=== PATIENT | male | born 1965 | race African-American/Black ===

== ENCOUNTER 2017-12-02 10:20 | Inpatient (IN) | payer OTHER ==
[2017-12-02 11:18] VITALS: BMI 27.4
--- NOTE | 2017-12-02 14:19 | HP ---
COWS - Scale Resting Pulse: 0= [place] 80 or Below Sweatin=Flushed/Facial Moisture Restless Observation: 3= Extraneous Movement Pupil Size: 2= Moderately Dilated Bone or Joint Aches: 2= Severe Diffuse Aches Runny Nose/ Eye Tearin= Runny Nose/Eyes GI Upset > 30mins: 3= Vomiting/Diarrhea Tremor Observation: 2= Slight Tremor Visible Yawning Observation: 1= 1-2x During Session Anxiety or Irritability: 2=Irritable/Anxious Goose Flesh Skin: 0=Smooth Skin COWS Score: 19 Admission ROS BHS - HPI Chief Complaint: i need help to stop using heroin and oxycodone Allergies/Adverse Reactions: Allergies Allergy/AdvReac Type Severity Reaction Status Date / Time Fish Containing Products Allergy Severe Swelling Verified 12/02/17 12:17 mayonnaise Allergy Severe Verified 12/02/17 12:17 Penicillins Allergy Severe Swelling Verified 12/02/17 12:17 History of Present Illness: this 52 years old male with heroin and oxycodone dependence,seeking detox, withdrawal symptom,last detox 03/13/10 to 03/20/10 [facility] on medication bph nicotine dependence weight loss low back pain post injury at work had surgery in 2014 Exam Limitations: No Limitations - Ebola screening Have you traveled outside of the country in the last 21 days: No Have you had contact with anyone from an Ebola affected area: No Have you been sick,other than usual withdrawal symptoms: No Do you have a fever: No - Review of Systems Constitutional: Chills, Loss of Appetite, Malaise, Night Sweats, Changes in sleep, Weakness, Unintentional Wgt. Loss EENT: reports: Tearing, Nose Congestion Respiratory: reports: No Symptoms reported Cardiac: reports: No Symptoms Reported GI: reports: Diarrhea, Nausea, Vomiting, Abdominal cramping : reports: No Symptoms Reported Musculoskeletal: reports: Back Pain, Joint Pain, Muscle Pain, Joint Stiffness Integumentary: reports: Dryness Neuro: reports: Headache, Tremors Endocrine: reports: No Symptoms Reported Hematology: reports: No Symptoms Reported Psychiatric: reports: No Sypmtoms Reported, Judgement Intact, Mood/Affect Appropiate, Agitated, Anxious Patient History - Patient Medical History Hx Anemia: No Hx Asthma: No Hx Chronic Obstructive Pulmonary Disease (COPD): No Hx Cancer: No Hx Cardiac Disorders: No Hx Congestive Heart Failure: No Hx Hypertension: Yes (on medication) Hx Hypercholesterolemia: No Hx Pacemaker: No HX Cerebrovascular Accident: No Hx Seizures: No Hx Diabetes: No Hx Gastrointestinal Disorders: Yes (Hx of acid reflux.) Hx Liver Disease: No Hx Genitourinary Disorders: No Hx Sexually Transmitted Disorders: No Hx Renal Disease (ESRD): No Hx Thyroid Disease: No Hx Human Immunodeficiency Virus (HIV): No (last 07/20 negative) Hx Hepatitis C: No Hx Depression: No Hx Suicide Attempt: No Hx Bipolar Disorder: No Hx Schizophrenia: No Other Medical History: insomnia,no suicidal,no homicidal - Patient Surgical History Past Surgical History: Yes Hx Neurologic Surgery: No Other Surgical History: Pt had sx lower back herniated disc in 2016 - PPD History Previous Implant?: Yes Documented Results: Negative w/o proof Implanted On Prior [facility] Admission?: No PPD to be Administered?: Yes - Smoking Cessation Smoking history: Current every day smoker Have you smoked in the past 12 months: Yes Aproximately how many cigarettes per day: 6 Hx Chewing Tobacco Use: No Initiated information on smoking cessation: Yes 'Breaking Loose' booklet given: 12/02/17 - Substance & Tx. History Hx Alcohol Use: No Hx Substance Use: Yes Substance Use Type: Heroin Hx Substance Use Treatment: Yes ([facility] 03/13/10 to 03/20/10) - Substances Abused Heroin Route: Inhalation Frequency: Daily Amount used: 8-9 bags Age of first use: 43 Date of Last Use: 12/01/17 oxycodone Route: Oral Frequency: Daily Amount used: 90mg Age of first use: 42 Date of Last Use: 12/01/17 Family Disease History - Family Disease History Family History: Denies Admission Physical Exam [facility] - Vital Signs Vital Signs: Vital Signs - 24 hr 12/02/17 11:16 Temperature 97.3 F L Pulse Rate 68 Respiratory 18 Rate Blood Pressure 142/99 - Physical General Appearance: Yes: Moderate Distress, Irritable, Sweating, Anxious HEENTM: Yes: Normal ENT Inspection, NKECHI, Pharynx Normal Respiratory: Yes: Lungs Clear, Normal Breath Sounds, No Respiratory Distress Neck: Yes: Within Normal Limits, Supple, Trachea in good position Breast: Yes: Within Normal Limits Cardiology: Yes: Within Normal Limits, Regular Rhythm, Regular Rate, S1, S2 Abdominal: Yes: Within Normal Limits, Non Tender, Soft Genitourinary: Yes: Within Normal Limits Back: Yes: Muscle Spasm Musculoskeletal: Yes: Back pain, Muscle Pain Extremities: Yes: Tremors 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 NML intact, Alert, Motor Strength 5/5 Integumentary: Yes: Dry Lymphatic: Yes: Within Normal Limits - Diagnostic (1) Opioid dependence with withdrawal Current Visit: Yes Status: Acute (2) Weight loss Current Visit: Yes Status: Acute (3) Low back pain Current Visit: Yes Status: Acute (4) History of back surgery Current Visit: Yes Status: Acute (5) Essential hypertension Current Visit: Yes Status: Acute (6) Insomnia Current Visit: Yes Status: Acute (7) GERD (gastroesophageal reflux disease) Current Visit: Yes Status: Acute Cleared for Admission [facility] - Detox or Rehab [facility] Level of Care: Medically Managed Detox Regimen/Protocol: Methadone [facility] Breath Alcohol Content Breath Alcohol Content: 0 Urine Drug Screen - Results Drug Screen Negative: No Urine Drug Screen Results: OPI-Opiates, BAR-Barbiturates, BZO-Benzodiazepines, MTD-Methadone, OXY-Oxycodone
[2017-12-02] MEDS ORDERED: MAG HYDROX/AL HYDROX/SIMETH 30 ML UNIT-DOSE CUP PO PRN (14:42)
[2017-12-02] MEDS ORDERED: MAGNESIUM HYDROX 2400MG/30ML ORAL SUSPENSION 30 ML CUP PO PRN (14:42)
[2017-12-02] MEDS ORDERED: LOPERAMIDE HCL 2 MG CAPSULE PO PRN (14:42)
[2017-12-02] MEDS ORDERED: NICOTINE POLACRILEX 2 MG GUM BUC PRN (14:42)
[2017-12-02] MEDS ORDERED: MAGNESIUM CITRATE 300 ML BOTTLE PO PRN (14:42)
[2017-12-02] MEDS ORDERED: P-EPHED 60MG/TRIPROLIDI 2.5MG TABLET PO PRN (14:42)
[2017-12-02] MEDS ORDERED: hydrOXYzine PAMOATE 25 MG CAPSULE (FP) PO PRN (14:42)
[2017-12-02] MEDS ORDERED: MENTHOL/PHENOL 1 EACH UD MM PRN (14:42)
[2017-12-02] MEDS ORDERED: guaiFENesin/D-METHORPHAN HB 10 ML UNIT-DOSE CUPS PO PRN (14:42)
[2017-12-02] MEDS ORDERED: CYCLOBENZAPRINE HCL 10 MG TABLET (FP) PO PRN (14:45)
[2017-12-02] MEDS ORDERED: METHADONE HCL 10 MG TABLET (FOR DETOX USE ONLY) PO ONE ×2 (15:45→23:00)
[2017-12-02] MEDS: diazePAM 5 MG TABLET PO PRN ×2 (15:58→22:52)
[2017-12-02] MEDS: PANTOPRAZOLE 40 MG TABLET (FP) PO SCH (16:01)
[2017-12-02] MEDS: NICOTINE 21 MG/24 HOURS TOPICAL PATCH TD SCH (16:03)
[2017-12-02] MEDS: LIDOCAINE 5% TOPICAL PATCH TP SCH (16:03)
[2017-12-02 17:12] LABS: URINE APPEARANCE CLEAR; URINE BILIRUBIN NEGATIVE (<2.0 mg/dL); URINE COLOR YELLOW; URINE GLUCOSE (UA) NEGATIVE (NEGATIVE); URINE KETONE NEGATIVE (NEGATIVE); URINE LEUK ESTERASE NEGATIVE (NEGATIVE); URINE NITRITE NEGATIVE (NEGATIVE); URINE PROTEIN NEGATIVE (NEGATIVE); URINE UROBILINOGEN NEGATIVE mg/dL (0.2-1.0)
[2017-12-02] MEDS: cloNIDine HCL 0.1 MG TABLET PO SCH (22:52)
[2017-12-02] MEDS: THIAMINE HCL 100 MG TABLET (FP) PO SCH (22:52)
[2017-12-02] MEDS: LIDOCAINE PATCH REMOVAL MC SCH (23:01)
[2017-12-03] MEDS: TAMSULOSIN HCL 0.4 MG CAP.ER.24H (FP) PO SCH (08:45)
[2017-12-03] MEDS: ACETAMINOPHEN 325 MG TABLET (FP) PO PRN (08:45)
[2017-12-03] MEDS ORDERED: METHADONE HCL 10 MG TABLET (FOR DETOX USE ONLY) PO ONE (10:00)
[2017-12-03 10:14] LABS: CHLORIDE 108 mmol/L (98-107); POTASSIUM 4.6 mmol/L (3.5-5.1); SODIUM 143 mmol/L (136-145)
[2017-12-03 10:15] LABS: HEMATOCRIT 35.6 % (35.4-49); MCH 31.2 pg (25.7-33.7); MCHC 33.6 g/dl (32.0-35.9); MEAN CELL VOLUME 93.1 fl (80-96); MEAN PLT VOLUME 8.7 fl (7.5-11.1); PLATELET COUNT 258 K/MM3 (134-434); RBC 3.83 M/mm3 (4.00-5.60); RDW 14.9 % (11.9-15.9); WHITE BLOOD COUNT 4.6 K/mm3 (4.0-10.0)
--- NOTE | 2017-12-03 10:46 | EKG ---
Test Reason : Blood Pressure : / mmHG Vent. Rate : 066 BPM Atrial Rate : 066 BPM P-R Int : 140 ms QRS Dur : 094 ms QT Int : 394 ms P-R-T Axes : 048 043 041 degrees QTc Int : 413 ms NORMAL SINUS RHYTHM NORMAL ECG NO PREVIOUS ECGS AVAILABLE Confirmed by NISHA SOLORIO, ANDERS ([id number]) on 12/03/2017 10:46:27 AM Referred By: Confirmed By:ANDERS CAMERON MD
[2017-12-03 10:55] LABS: ALBUMIN 3.6 g/dl (3.4-5.0); ALK PHOS 80 U/L (45-117); ANION GAP 8 (8-16); BILIRUBIN,TOTAL 0.3 mg/dL (0.2-1.0); BLOOD UREA NITROGEN 22 mg/dL (7-18); CALCIUM 9.1 mg/dL (8.5-10.1); CO2 27 mmol/L (21-32); GLUCOSE,RANDOM 71 mg/dL (74-106); SGOT/AST 18 U/L (15-37); SGPT/ALT 34 U/L (12-78); TOT PROT 7.4 g/dl (6.4-8.2)
[2017-12-03] MEDS: ASPIRIN 81 MG CHEWABLE TABLETS PO SCH (11:10)
[2017-12-03] MEDS: cloNIDine HCL 0.1 MG TABLET PO SCH ×2 (11:10→22:16)
[2017-12-03] MEDS: PRENATAL VITAMINS W/ FOLIC ACID TABLET (FP) PO SCH (11:10)
[2017-12-03] MEDS: PANTOPRAZOLE 40 MG TABLET (FP) PO SCH (11:10)
[2017-12-03] MEDS: HYDROCHLOROTHIAZIDE 25 MG TABLET (FP) PO SCH (11:11)
[2017-12-03] MEDS: NICOTINE 21 MG/24 HOURS TOPICAL PATCH TD SCH (11:12)
[2017-12-03] MEDS: LIDOCAINE 5% TOPICAL PATCH TP SCH (11:12)
--- NOTE | 2017-12-03 12:52 | PN ---
BHS COWS - Scale Resting Pulse: 0= [place] 80 or Below Sweatin= Chills/Flushing Restless Observation: 3= Extraneous Movement Pupil Size: 1= Pupils >than Normal Bone or Joint Aches: 2= Severe Diffuse Aches Runny Nose/ Eye Tearin= Runny Nose/Eyes GI Upset > 30mins: 2= Nausea/Diarrhea Tremor Observation of Outstretched Hands: 2= Slight Tremor Visible Yawning Observation: 1= 1-2x During Session Anxiety or Irritability: 2=Irritable/Anxious Goose Flesh Skin: 0=Smooth Skin COWS Score: 16 S Progress Note (SOAP) Subjective: alert,irritable,anxious,interrupted sleep,tremor,pain in the body and back Objective: 12/03/17 12:48 Vital Signs Temperature 97.7 F 12/03/17 09:15 Pulse Rate 67 12/03/17 09:15 Respiratory Rate 18 12/03/17 09:15 Blood Pressure 129/79 12/03/17 09:15 O2 Sat by Pulse Oximetry (%) ekg nsr qt/qtc 394/413 Laboratory Last Values WBC 4.6 K/mm3 (4.0-10.0) 12/03/17 06:00 RBC 3.83 M/mm3 (4.00-5.60) L 12/03/17 06:00 Hgb 12.0 GM/dL (11.7-16.9) 12/03/17 06:00 Hct 35.6 % (35.4-49) 12/03/17 06:00 MCV 93.1 fl (80-96) 12/03/17 06:00 MCH 31.2 pg (25.7-33.7) 12/03/17 06:00 MCHC 33.6 g/dl (32.0-35.9) 12/03/17 06:00 RDW 14.9 % (11.9-15.9) 12/03/17 06:00 Plt Count 258 K/MM3 (134-434) 12/03/17 06:00 MPV 8.7 fl (7.5-11.1) 12/03/17 06:00 Sodium 143 mmol/L (136-145) 12/03/17 06:00 Potassium 4.6 mmol/L (3.5-5.1) 12/03/17 06:00 Chloride 108 mmol/L (98-107) H 12/03/17 06:00 Carbon Dioxide 27 mmol/L (21-32) 12/03/17 06:00 Anion Gap 8 (8-16) 12/03/17 06:00 BUN 22 mg/dL (7-18) H 12/03/17 06:00 Creatinine 1.0 mg/dL (0.7-1.3) 12/03/17 06:00 Creat Clearance w eGFR > 60 (>60) 12/03/17 06:00 Random Glucose 71 mg/dL (74-106) L 12/03/17 06:00 Calcium 9.1 mg/dL (8.5-10.1) 12/03/17 06:00 Total Bilirubin 0.3 mg/dL (0.2-1.0) 12/03/17 06:00 AST 18 U/L (15-37) 12/03/17 06:00 ALT 34 U/L (12-78) 12/03/17 06:00 Alkaline Phosphatase 80 U/L (45-117) 12/03/17 06:00 Total Protein 7.4 g/dl (6.4-8.2) 12/03/17 06:00 Albumin 3.6 g/dl (3.4-5.0) 12/03/17 06:00 Urine Color Yellow 12/02/17 16:03 Urine Appearance Clear 12/02/17 16:03 Urine pH 6.0 (5.0-8.0) 12/02/17 16:03 Ur Specific [place] 1.025 (1.001-1.035) 12/02/17 16:03 Urine Protein Negative (NEGATIVE) 12/02/17 16:03 Urine Glucose (UA) Negative (NEGATIVE) 12/02/17 16:03 Urine Ketones Negative (NEGATIVE) 12/02/17 16:03 Urine Blood Negative (NEGATIVE) 12/02/17 16:03 Urine Nitrite Negative (NEGATIVE) 12/02/17 16:03 Urine Bilirubin Negative (<2.0 mg/dL) 12/02/17 16:03 Urine Urobilinogen Negative mg/dL (0.2-1.0) 12/02/17 16:03 Ur Leukocyte Esterase Negative (NEGATIVE) 12/02/17 16:03 Assessment: 12/03/17 12:52 withdrawal symptom Plan: continue detox
--- NOTE | 2017-12-03 18:16 | CONSULT ---
[facility] Psychiatric Consult - Data Date of interview: 12/03/17 Admission source: [facility] Identifying data: [facility] [employer] reported to [address] [place] [address] to examine Mr Adam as per consult request.Patient is foung resting comfortably in bed.Fully awake.Pleasant on approach.Mr Adam politely declines psychiatric interview. " Doctor, I am fine.I don't need to see a psychiatrist.Thank you." Nursing staff is informed of patient's decision to waive psychiatric evaluation.
[2017-12-03] MEDS: MELATONIN 5 MG TABLETS PO PRN (22:16)
[2017-12-03] MEDS: THIAMINE HCL 100 MG TABLET (FP) PO SCH (22:16)
[2017-12-03] MEDS: LIDOCAINE PATCH REMOVAL MC SCH (22:48)
[2017-12-04] MEDS ORDERED: METHADONE HCL 5 MG TABLET (FOR DETOX USE ONLY) PO ONE (10:00)
[2017-12-04] MEDS: PRENATAL VITAMINS W/ FOLIC ACID TABLET (FP) PO SCH (10:52)
[2017-12-04] MEDS: ASPIRIN 81 MG CHEWABLE TABLETS PO SCH (10:52)
[2017-12-04] MEDS: PANTOPRAZOLE 40 MG TABLET (FP) PO SCH (10:53)
[2017-12-04] MEDS: TAMSULOSIN HCL 0.4 MG CAP.ER.24H (FP) PO SCH (10:53)
[2017-12-04] MEDS: HYDROCHLOROTHIAZIDE 25 MG TABLET (FP) PO SCH (10:53)
[2017-12-04] MEDS: cloNIDine HCL 0.1 MG TABLET PO SCH ×2 (10:53→22:22)
[2017-12-04] MEDS: NICOTINE 21 MG/24 HOURS TOPICAL PATCH TD SCH (10:54)
[2017-12-04] MEDS: LIDOCAINE 5% TOPICAL PATCH TP SCH (10:54)
--- NOTE | 2017-12-04 11:38 | PN ---
BHS COWS - Scale Resting Pulse: 0= [place] 80 or Below Sweatin= Chills/Flushing Restless Observation: 3= Extraneous Movement Pupil Size: 1= Pupils >than Normal Bone or Joint Aches: 2= Severe Diffuse Aches Runny Nose/ Eye Tearin= Runny Nose/Eyes GI Upset > 30mins: 2= Nausea/Diarrhea Tremor Observation of Outstretched Hands: 2= Slight Tremor Visible Yawning Observation: 2= >3x During Session Anxiety or Irritability: 2=Irritable/Anxious Goose Flesh Skin: 0=Smooth Skin COWS Score: 17 BHS Progress Note (SOAP) Subjective: alert,irritable,anxious,interrupted sleep,tremor,pain in body Objective: 12/04/17 11:36 Vital Signs Temperature 98 F 12/04/17 09:22 Pulse Rate 74 12/04/17 09:22 Respiratory Rate 18 12/04/17 09:22 Blood Pressure 143/83 12/04/17 09:22 O2 Sat by Pulse Oximetry (%) 12/04/17 11:37 Vital Signs Temperature 98 F 12/04/17 09:22 Pulse Rate 74 12/04/17 09:22 Respiratory Rate 18 12/04/17 09:22 Blood Pressure 143/83 12/04/17 09:22 O2 Sat by Pulse Oximetry (%) 12/04/17 11:37 Laboratory Last Values WBC 4.6 K/mm3 (4.0-10.0) 12/03/17 06:00 RBC 3.83 M/mm3 (4.00-5.60) L 12/03/17 06:00 Hgb 12.0 GM/dL (11.7-16.9) 12/03/17 06:00 Hct 35.6 % (35.4-49) 12/03/17 06:00 MCV 93.1 fl (80-96) 12/03/17 06:00 MCH 31.2 pg (25.7-33.7) 12/03/17 06:00 MCHC 33.6 g/dl (32.0-35.9) 12/03/17 06:00 RDW 14.9 % (11.9-15.9) 12/03/17 06:00 Plt Count 258 K/MM3 (134-434) 12/03/17 06:00 MPV 8.7 fl (7.5-11.1) 12/03/17 06:00 Sodium 143 mmol/L (136-145) 12/03/17 06:00 Potassium 4.6 mmol/L (3.5-5.1) 12/03/17 06:00 Chloride 108 mmol/L (98-107) H 12/03/17 06:00 Carbon Dioxide 27 mmol/L (21-32) 12/03/17 06:00 Anion Gap 8 (8-16) 12/03/17 06:00 BUN 22 mg/dL (7-18) H 12/03/17 06:00 Creatinine 1.0 mg/dL (0.7-1.3) 12/03/17 06:00 Creat Clearance w eGFR > 60 (>60) 12/03/17 06:00 Random Glucose 71 mg/dL (74-106) L 12/03/17 06:00 Calcium 9.1 mg/dL (8.5-10.1) 12/03/17 06:00 Total Bilirubin 0.3 mg/dL (0.2-1.0) 12/03/17 06:00 AST 18 U/L (15-37) 12/03/17 06:00 ALT 34 U/L (12-78) 12/03/17 06:00 Alkaline Phosphatase 80 U/L (45-117) 12/03/17 06:00 Total Protein 7.4 g/dl (6.4-8.2) 12/03/17 06:00 Albumin 3.6 g/dl (3.4-5.0) 12/03/17 06:00 Urine Color Yellow 12/02/17 16:03 Urine Appearance Clear 12/02/17 16:03 Urine pH 6.0 (5.0-8.0) 12/02/17 16:03 Ur Specific [place] 1.025 (1.001-1.035) 12/02/17 16:03 Urine Protein Negative (NEGATIVE) 12/02/17 16:03 Urine Glucose (UA) Negative (NEGATIVE) 12/02/17 16:03 Urine Ketones Negative (NEGATIVE) 12/02/17 16:03 Urine Blood Negative (NEGATIVE) 12/02/17 16:03 Urine Nitrite Negative (NEGATIVE) 12/02/17 16:03 Urine Bilirubin Negative (<2.0 mg/dL) 12/02/17 16:03 Urine Urobilinogen Negative mg/dL (0.2-1.0) 12/02/17 16:03 Ur Leukocyte Esterase Negative (NEGATIVE) 12/02/17 16:03 RPR Titer Nonreactive (NONREACTIVE) 12/03/17 06:00 Assessment: 12/04/17 11:38 withdrawal symptom Plan: continue detox
[2017-12-04] MEDS: THIAMINE HCL 100 MG TABLET (FP) PO SCH (22:22)
[2017-12-04] MEDS: LIDOCAINE PATCH REMOVAL MC SCH (22:22)
[2017-12-05] MEDS: PANTOPRAZOLE 40 MG TABLET (FP) PO SCH (10:09)
[2017-12-05] MEDS: LIDOCAINE 5% TOPICAL PATCH TP SCH ×2 (10:09→10:16)
[2017-12-05] MEDS: cloNIDine HCL 0.1 MG TABLET PO SCH ×3 (10:09→22:19)
[2017-12-05] MEDS: TAMSULOSIN HCL 0.4 MG CAP.ER.24H (FP) PO SCH ×2 (10:09→10:17)
[2017-12-05] MEDS: NICOTINE 21 MG/24 HOURS TOPICAL PATCH TD SCH ×2 (10:09→10:15)
[2017-12-05] MEDS: PRENATAL VITAMINS W/ FOLIC ACID TABLET (FP) PO SCH ×2 (10:09→10:15)
[2017-12-05] MEDS: HYDROCHLOROTHIAZIDE 25 MG TABLET (FP) PO SCH ×2 (10:09→10:17)
[2017-12-05] MEDS: METHADONE HCL 5 MG TABLET (FOR DETOX USE ONLY) PO ONE ×2 (10:10→10:13)
[2017-12-05] MEDS: diazePAM 5 MG TABLET PO PRN ×2 (10:10→10:13)
[2017-12-05] MEDS: ASPIRIN 81 MG CHEWABLE TABLETS PO SCH ×2 (10:10→10:16)
--- NOTE | 2017-12-05 11:11 | PN ---
BHS Progress Note (SOAP) Subjective: alert,irritable,anxious,interrupted sleep,pain in the back Objective: 12/05/17 11:10 Vital Signs Temperature 98.2 F 12/05/17 09:47 Pulse Rate 66 12/05/17 09:47 Respiratory Rate 18 12/05/17 09:47 Blood Pressure 119/70 12/05/17 09:47 O2 Sat by Pulse Oximetry (%) Assessment: 12/05/17 11:10 withdrawal symptom Plan: continue detox
[2017-12-05] MEDS: IBUPROFEN 400 MG TABLET (FP) PO PRN (12:02)
[2017-12-05] MEDS: LIDOCAINE PATCH REMOVAL MC SCH (22:19)
[2017-12-05] MEDS: THIAMINE HCL 100 MG TABLET (FP) PO SCH (22:19)
[2017-12-05] MEDS: ACETAMINOPHEN 325 MG TABLET (FP) PO PRN (22:22)
--- NOTE | 2017-12-06 09:05 | PN ---
S Progress Note (SOAP) Subjective: alert,irritable,anxious,interrupted sleep Objective: 12/06/17 09:02 Vital Signs Temperature 97.7 F 12/06/17 07:30 Pulse Rate 66 12/06/17 07:30 Respiratory Rate 18 12/06/17 07:30 Blood Pressure 133/80 12/06/17 07:30 O2 Sat by Pulse Oximetry (%) Assessment: 12/06/17 09:02 withdrawal symptom Plan: continue detox,discharge in am
[2017-12-06] MEDS ORDERED: METHADONE HCL 10 MG TABLET (FOR DETOX USE ONLY) PO ONE (10:00)
[2017-12-06] MEDS: NICOTINE 21 MG/24 HOURS TOPICAL PATCH TD SCH (10:46)
[2017-12-06] MEDS: HYDROCHLOROTHIAZIDE 25 MG TABLET (FP) PO SCH (10:46)
[2017-12-06] MEDS: PANTOPRAZOLE 40 MG TABLET (FP) PO SCH (10:46)
[2017-12-06] MEDS: PRENATAL VITAMINS W/ FOLIC ACID TABLET (FP) PO SCH (10:46)
[2017-12-06] MEDS: cloNIDine HCL 0.1 MG TABLET PO SCH ×2 (10:46→22:23)
[2017-12-06] MEDS: ASPIRIN 81 MG CHEWABLE TABLETS PO SCH (10:46)
[2017-12-06] MEDS: LIDOCAINE 5% TOPICAL PATCH TP SCH (10:47)
[2017-12-06] MEDS: TAMSULOSIN HCL 0.4 MG CAP.ER.24H (FP) PO SCH (10:47)
[2017-12-06] MEDS: IBUPROFEN 400 MG TABLET (FP) PO PRN (17:15)
[2017-12-06] MEDS: THIAMINE HCL 100 MG TABLET (FP) PO SCH (22:23)
[2017-12-06] MEDS: MELATONIN 5 MG TABLETS PO PRN (22:24)
[2017-12-06] MEDS: LIDOCAINE PATCH REMOVAL MC SCH (22:25)
[2017-12-07] MEDS ORDERED: METHADONE HCL 5 MG TABLET (FOR DETOX USE ONLY) PO ONE (06:00)
[2017-12-07] MEDS: TAMSULOSIN HCL 0.4 MG CAP.ER.24H (FP) PO SCH (07:30)
[2017-12-07 07:43] VITALS: BP 149/92; PULSE 76; TEMP 97.9
--- NOTE | 2017-12-07 09:48 | DS ---
[facility] Detox Discharge Summary Admission Date: 12/02/17 Discharge Date: 12/07/17 - History Present History: Opioid Dependence Additional Comments: 52 years old male admitted on 12/02/17 for opiate withdrawal sx completed opiate detox regimen tolerated well aftercare [facility] patient left the detox unit before provider arrival to the detox unit - Physical Exam Results Vital Signs: Vital Signs Temperature 97.9 F 12/07/17 07:43 Pulse Rate 76 12/07/17 07:43 Respiratory Rate 18 12/07/17 07:43 Blood Pressure 149/92 12/07/17 07:43 O2 Sat by Pulse Oximetry (%) Pertinent Admission Physical Exam Findings: opiate withdrawal sx Vital Signs Temperature 97.9 F 12/07/17 07:43 Pulse Rate 76 12/07/17 07:43 Respiratory Rate 18 12/07/17 07:43 Blood Pressure 149/92 12/07/17 07:43 O2 Sat by Pulse Oximetry (%) Laboratory Last Values WBC 4.6 K/mm3 (4.0-10.0) 12/03/17 06:00 RBC 3.83 M/mm3 (4.00-5.60) L 12/03/17 06:00 Hgb 12.0 GM/dL (11.7-16.9) 12/03/17 06:00 Hct 35.6 % (35.4-49) 12/03/17 06:00 MCV 93.1 fl (80-96) 12/03/17 06:00 MCH 31.2 pg (25.7-33.7) 12/03/17 06:00 MCHC 33.6 g/dl (32.0-35.9) 12/03/17 06:00 RDW 14.9 % (11.9-15.9) 12/03/17 06:00 Plt Count 258 K/MM3 (134-434) 12/03/17 06:00 MPV 8.7 fl (7.5-11.1) 12/03/17 06:00 Sodium 143 mmol/L (136-145) 12/03/17 06:00 Potassium 4.6 mmol/L (3.5-5.1) 12/03/17 06:00 Chloride 108 mmol/L (98-107) H 12/03/17 06:00 Carbon Dioxide 27 mmol/L (21-32) 12/03/17 06:00 Anion Gap 8 (8-16) 12/03/17 06:00 BUN 22 mg/dL (7-18) H 12/03/17 06:00 Creatinine 1.0 mg/dL (0.7-1.3) 12/03/17 06:00 Creat Clearance w eGFR > 60 (>60) 12/03/17 06:00 Random Glucose 71 mg/dL (74-106) L 12/03/17 06:00 Calcium 9.1 mg/dL (8.5-10.1) 12/03/17 06:00 Total Bilirubin 0.3 mg/dL (0.2-1.0) 12/03/17 06:00 AST 18 U/L (15-37) 12/03/17 06:00 ALT 34 U/L (12-78) 12/03/17 06:00 Alkaline Phosphatase 80 U/L (45-117) 12/03/17 06:00 Total Protein 7.4 g/dl (6.4-8.2) 12/03/17 06:00 Albumin 3.6 g/dl (3.4-5.0) 12/03/17 06:00 Urine Color Yellow 12/02/17 16:03 Urine Appearance Clear 12/02/17 16:03 Urine pH 6.0 (5.0-8.0) 12/02/17 16:03 Ur Specific [place] 1.025 (1.001-1.035) 12/02/17 16:03 Urine Protein Negative (NEGATIVE) 12/02/17 16:03 Urine Glucose (UA) Negative (NEGATIVE) 12/02/17 16:03 Urine Ketones Negative (NEGATIVE) 12/02/17 16:03 Urine Blood Negative (NEGATIVE) 12/02/17 16:03 Urine Nitrite Negative (NEGATIVE) 12/02/17 16:03 Urine Bilirubin Negative (<2.0 mg/dL) 12/02/17 16:03 Urine Urobilinogen Negative mg/dL (0.2-1.0) 12/02/17 16:03 Ur Leukocyte Esterase Negative (NEGATIVE) 12/02/17 16:03 RPR Titer Nonreactive (NONREACTIVE) 12/03/17 06:00 lab noted - Treatment Hospital Course: Detox Protocol Followed, Detoxed Safely, Responded well, Discharged Condition Good, Rehab Referral Accepted Patient has Accepted a Rehab Referral to: [facility] am 12/08/17 - Medication Discharge Medications: Ambulatory Orders Aspirin [ASA -] 81 mg PO DAILY 12/02/17 Hydrochlorothiazide [Hctz -] 25 mg PO DAILY 12/02/17 Tamsulosin HCl [Flomax -] 0.4 mg PO DAILY 12/02/17 - Diagnosis (1) Essential hypertension Status: Chronic (2) GERD (gastroesophageal reflux disease) Status: Chronic Qualifiers: Esophagitis presence: without esophagitis Qualified Code(s): K21.9 - Gastro -esophageal reflux disease without esophagitis (3) Opioid dependence with withdrawal Status: Acute - AMA Did Patient Leave Against Medical Advice: No
== END 2017-12-07 07:30 | disposition home or self-care (01) | DRG 773 ==
LOC: YASAS 10:20 → Y6N 14:55
PROVIDERS: ADMIT Surgery; ATTEND Surgery
PROC: HZ2ZZZZ Detoxification Services for Substance Abuse Treatment (ICD-10-PCS; principal; 2017-12-02)
DX: F11.23 Opioid dependence with withdrawal (principal); F17.210 Nicotine dependence, cigarettes, uncomplicated; I10 Essential (primary) hypertension; K21.9 Gastro-esophageal reflux disease without esophagitis; M54.5 Low back pain; G47.00 Insomnia, unspecified; Z80.0 Family history of malignant neoplasm of digestive organs; Z91.013 Allergy to seafood; Z87.898 Personal history of other specified conditions
CPT/HCPCS: 36415; 80053; 81003; 85027; 86593; 93005; 93010; J0735

== ENCOUNTER 2018-08-28 14:26 | Inpatient (IN) | payer OTHER ==
[2018-08-28 17:49] VITALS: BMI 31.0
--- NOTE | 2018-08-28 19:20 | HP ---
"COWS - Scale Resting Pulse: 0= [place] 80 or Below Sweatin= Beads of Sweat on Face Restless Observation: 3= Extraneous Movement Pupil Size: 0= Normal to Room Light Bone or Joint Aches: 4=Acute Joint/Muscle Pain Runny Nose/ Eye Tearin= Runny Nose/Eyes GI Upset > 30mins: 0= None Tremor Observation: 2= Slight Tremor Visible Yawning Observation: 1= 1-2x During Session Anxiety or Irritability: 1=Feels Anxious/Irritable Goose Flesh Skin: 0=Smooth Skin COWS Score: 16 CIWA Score Nausea/Vomitin-No Nausea/No Vomiting Muscle Tremors: 3 Anxiety: 2 Agitation: 0-Normal Activity Paroxysmal Sweats: 4-Forehead w/Sweat Beads Orientation: 1-Uncertain about Date Tacttile Disturbances: 0-None Auditory Disturbances: 0-None Visual Disturbances: 0-None Headache: 2-Mild CIWA-Ar Total Score: 12 - Admission Criteria OASAS Guidelines: Admission for Medically Managed Detox: Requires at least one of the followin. CIWA greater than 12 2. Seizures within the past 24 hours 3. Delirium tremens within the past 24 hours 4. Hallucinations within the past 24 hours 5. Acute intervention needed for co occurring medical disorder 6. Acute intervention needed for co occurring psychiatric disorder 7. Severe withdrawal that cannot be handled at a lower level of care (continued vomiting, continued diarrhea, abnormal vital signs) requiring intravenous medication and/or fluids 8. Admission ROS [facility] Chief Complaint: I came for heroin detox. Allergies/Adverse Reactions: Allergies Allergy/AdvReac Type Severity Reaction Status Date / Time Fish Containing Products Allergy Severe Swelling Verified 08/28/18 17:49 mayonnaise Allergy Severe Verified 08/28/18 17:49 Penicillins Allergy Severe Swelling Verified 08/28/18 17:49 History of Present Illness: A 53year old male with heroin, methadone, cocaine, and nicotine dependence, seeking detox for heroine withdrawal symptom. Pt's last detox was 12/02/2017 to [facility]. Pt has history of htn, BPH, low back pain Pt had sx lower back herniated disc in 2016. The Drug Utilization Report below displays all of the controlled substance prescriptions, if any, that your patient has filled in the last twelve months. The information displayed on this report is compiled from pharmacy submissions to the Department, and accurately reflects the information as submitted by the pharmacies. This report was requested by: Kezia Marie | Reference #: [id number] You have not added a RAPHAEL number. Keeping your RAPHAEL number(s) up to date on the My RAPHAEL Numbers page will enable the separation of your prescriptions from others ' in the search results. Others' Prescriptions Patient Name: Thong Adam Date: 1965 Address: [address] [place] [address] Sex: Male Rx Written Rx Dispensed Drug Quantity Days Supply Prescriber Name 08/25/2018 08/25/2018 clonazepam 2 mg tablet 60 30 Mercer, Nik Monk MD 07/24/2018 07/24/2018 clonazepam 2 mg tablet 60 30 Mercer, Nik Monk MD 06/26/2018 06/26/2018 clonazepam 2 mg tablet 60 30 Mercer, Nik Monk MD 06/08/2018 06/08/2018 suboxone 8 mg-2 mg sl film 60 30 Cristian Coulter 05/26/2018 05/26/2018 clonazepam 2 mg tablet 60 30 Mercer, Nik Monk MD 04/23/2018 04/23/2018 clonazepam 2 mg tablet 60 30 Mercer, Nik Monk MD 04/06/2018 04/16/2018 suboxone 8 mg-2 mg sl film 60 30 Cristian Coulter 03/23/2018 03/24/2018 suboxone 8 mg-2 mg sl film 50 25 Cristian Coulter 03/24/2018 03/24/2018 clonazepam 2 mg tablet 60 30 Mercer, Nik Monk MD 03/20/2018 03/20/2018 suboxone 8 mg-2 mg sl film 7 7 Cristian Coulter 02/20/2018 02/20/2018 clonazepam 2 mg tablet 60 30 Mercer, Nik Monk MD 10/20/2017 10/20/2017 suboxone 8 mg-2 mg sl film 90 30 Jan Lindquist MD 10/07/2017 10/07/2017 clonazepam 2 mg tablet 60 30 Kathie Mireles Patient Name: Thong Adam Date: 1965 Address: [address] [address] Sex: Male Rx Written Rx Dispensed Drug Quantity Days Supply Prescriber Name 08/19/2018 08/19/2018 suboxone 8 mg-2 mg sl film 24 8 Lilli Worrell Patient Name: Thong Adam Date: 1965 Address: [address] [place] [address] Sex: Male Rx Written Rx Dispensed Drug Quantity Days Supply Prescriber Name 08/14/2018 08/17/2018 buprenorphine-naloxone 8-2 mg sl tablet 12 4 Cosme Bardales MD Patient Name: Thong Adam Date: 1965 Address: [address] [place] [address] Sex: Male Rx Written Rx Dispensed Drug Quantity Days Supply Prescriber Name 07/14/2018 07/20/2018 buprenorphine-naloxone 4-1 mg sl film 20 10 Peewee Cam MD Patient Name: Thong Adam Date: 1965 Address: [address] [place] [address] Sex: Male Rx Written Rx Dispensed Drug Quantity Days Supply Prescriber Name 03/02/2018 03/02/2018 suboxone 8 mg-2 mg sl film 30 15 Hemphill, Amarilis L 02/16/2018 02/16/2018 suboxone 8 mg-2 mg sl film 30 30 Hemphill, Amarilis L 02/02/2018 02/02/2018 suboxone 8 mg-2 mg sl film 30 15 Hemphill, Amarilis L 01/19/2018 01/20/2018 suboxone 8 mg-2 mg sl film 15 15 Hemphill, Amarilis L 01/06/2018 01/06/2018 suboxone 8 mg-2 mg sl film 15 15 Oneil, Shiloh Exam Limitations: No Limitations - Ebola screening Have you traveled outside of the country in the last 21 days: No Have you had contact with anyone from an Ebola affected area: No Do you have a fever: No - Review of Systems Constitutional: Night Sweats, Changes in sleep EENT: reports: No Symptoms Reported Respiratory: reports: Cough Cardiac: reports: No Symptoms Reported GI: reports: No Symptoms Reported : reports: No Symptoms Reported Musculoskeletal: reports: Back Pain, Joint Pain, Muscle Pain Integumentary: reports: No Symptoms Reported Neuro: reports: Tremors Endocrine: reports: No Symptoms Reported Hematology: reports: No Symptoms Reported Psychiatric: reports: Anxious Patient History - Patient Medical History Hx Anemia: No Hx Asthma: No Hx Chronic Obstructive Pulmonary Disease (COPD): No Hx Cancer: No Hx Cardiac Disorders: No Hx Congestive Heart Failure: No Hx Hypertension: Yes (on medication) Hx Hypercholesterolemia: No Hx Pacemaker: No HX Cerebrovascular Accident: No Hx Seizures: No Hx Diabetes: No Hx Gastrointestinal Disorders: Yes (Hx of acid reflux.) Hx Liver Disease: No Hx Genitourinary Disorders: No Hx Sexually Transmitted Disorders: No Hx Renal Disease (ESRD): No Hx Thyroid Disease: No Hx Human Immunodeficiency Virus (HIV): No (last 07/20 negative) Hx Hepatitis C: No Hx Depression: No Hx Suicide Attempt: No Hx Bipolar Disorder: No Hx Schizophrenia: No - Patient Surgical History Past Surgical History: Yes Hx Neurologic Surgery: No Other Surgical History: Pt had sx lower back herniated disc in 2016 - PPD History Previous Implant?: No (Last implant documented on 12/04/2017) PPD to be Administered?: Yes - Smoking Cessation Smoking history: Current every day smoker Have you smoked in the past 12 months: Yes Aproximately how many cigarettes per day: 6 Hx Chewing Tobacco Use: No Initiated information on smoking cessation: Yes 'Breaking Loose' booklet given: 08/28/18 - Substances abused Heroin Substance route: Inhalation Frequency: Daily Amount used: 7 bags Age of first use: 41 Date of last use: 08/27/18 Oxycontin Substance route: Oral Frequency: Daily Amount used: 30mg Age of first use: 41 Date of last use: 08/27/18 Family Disease History - Family Disease History Other Family History: denies any family history Admission Physical Exam BHS - Vital Signs Vital Signs: Vital Signs - 24 hr 08/28/18 17:43 Temperature 97.8 F Pulse Rate 76 Respiratory 18 Rate Blood Pressure 154/95 - Physical General Appearance: Yes: No Apparent Distress HEENTM: Yes: EOMI, Normal ENT Inspection, Normocephalic, Normal Voice, NKECHI Respiratory: Yes: Lungs Clear, Normal Breath Sounds, No Respiratory Distress Neck: Yes: Within Normal Limits, No masses,lesions,Nodules, Supple, Trachea in good position Breast: Yes: Within Normal Limits Cardiology: Yes: Regular Rhythm, Regular Rate, S1, S2 Abdominal: Yes: Within Normal Limits Genitourinary: Yes: Within Normal Limits Back: Yes: Other (Pt had sx lower back herniated disc in 2016) Musculoskeletal: Yes: full range of Motion, Gait Steady, Back pain, Muscle Pain Neurological: Yes: claim review medical director II-XII NML intact, Fully Oriented, Alert, Motor Strength 5/5, Normal Mood/Affect, Normal Response Integumentary: Yes: Normal Color, Dry, Warm Lymphatic: Yes: Within Normal Limits Cleared for Admission [facility] - Detox or Rehab [facility] Level of Care: Medically Managed Detox Regimen/Protocol: Methadone Breathalyzer - Breathalyzer Breathalyzer: 0 POC Urine test - Result Urine Test Results: Negative - NO line present Urine Drug Screen - Test Device Lot number: [id number] Expiration date: 08/02/19 - Control Is test valid?: Yes - Results Drug screen NEGATIVE: No Urine drug screen results: STEPHANY-Cocaine, MOP-Opiates, MTD-Methadone, BZO- Benzodiazepines, BUP-Suboxone Inpatient Rehab Admission - Rehab Decision to Admit Inpatient rehab admission?: No"
[2018-08-28] MEDS ORDERED: cloNIDine HCL 0.1 MG TABLET PO PRN (19:32)
[2018-08-28] MEDS ORDERED: MAGNESIUM HYDROX 2400MG/30ML ORAL SUSPENSION 30 ML CUP PO PRN (19:34)
[2018-08-28] MEDS ORDERED: MAG HYDROX/AL HYDROX/SIMETH 30 ML UNIT-DOSE CUP PO PRN (19:34)
[2018-08-28] MEDS ORDERED: ACETAMINOPHEN 325 MG TABLET (FP) PO PRN ×2 (19:34)
[2018-08-28] MEDS ORDERED: MENTHOL/PHENOL 1 EACH UD MM PRN (19:34)
[2018-08-28] MEDS ORDERED: BISMUTH SUBSALICYLATE 524 MG/30 ML UD PO PRN (19:34)
[2018-08-28] MEDS ORDERED: MAGNESIUM CITRATE 300 ML BOTTLE PO PRN (19:34)
[2018-08-28] MEDS: clonazePAM 0.5 MG TABLET PO SCH (20:56)
[2018-08-28] MEDS: guaiFENesin 200 MG/10 ML 10 ML UNIT-DOSE CUPS PO PRN (21:06)
[2018-08-28] MEDS: MELATONIN 5 MG TABLETS PO PRN (22:54)
[2018-08-28] MEDS: THIAMINE HCL 100 MG TABLET (FP) PO SCH (22:54)
[2018-08-28] MEDS ORDERED: METHADONE HCL 10 MG TABLET (FOR DETOX USE ONLY) PO ONE (23:00)
[2018-08-29] MEDS: clonazePAM 0.5 MG TABLET PO SCH ×4 (02:24→19:16)
[2018-08-29] MEDS ORDERED: METHADONE HCL 10 MG TABLET (FOR DETOX USE ONLY) PO ONE (10:00)
[2018-08-29] MEDS: TAMSULOSIN HCL 0.4 MG CAP PO SCH (10:17)
[2018-08-29] MEDS: HYDROCHLOROTHIAZIDE 25 MG TABLET (FP) PO SCH (10:17)
[2018-08-29] MEDS: ASPIRIN 81 MG CHEWABLE TABLETS PO SCH (10:17)
[2018-08-29] MEDS: PRENATAL VITAMINS W/ FOLIC ACID TABLET (FP) PO SCH (10:17)
[2018-08-29] MEDS: NICOTINE 14 MG/24 HOURS TOPICAL PATCH TD SCH (10:18)
[2018-08-29] MEDS: guaiFENesin 200 MG/10 ML 10 ML UNIT-DOSE CUPS PO PRN ×3 (10:18→23:18)
[2018-08-29 10:23] LABS: HEMATOCRIT 36.8 % (35.4-49); HEMOGLOBIN 12.4 GM/dL (11.7-16.9); MCH 31.3 pg (25.7-33.7); MCHC 33.6 g/dl (32.0-35.9); MEAN CELL VOLUME 93.2 fl (80-96); MEAN PLT VOLUME 8.8 fl (7.5-11.1); PLATELET COUNT 209 K/MM3 (134-434); RBC 3.94 M/mm3 (4.00-5.60); RDW 14.4 % (11.9-15.9); WHITE BLOOD COUNT 4.4 K/mm3 (4.0-10.0)
[2018-08-29 10:31] LABS: ALBUMIN 3.4 g/dl (3.4-5.0); ALK PHOS 77 U/L (45-117); ANION GAP 7 MMOL/L (8-16); BILIRUBIN,TOTAL 0.4 mg/dL (0.2-1); BLOOD UREA NITROGEN 16 mg/dL (7-18); CHLORIDE 108 mmol/L (98-107); CO2 27 mmol/L (21-32); CREATININE 0.8 mg/dL (0.55-1.3); GLUCOSE,RANDOM 82 mg/dL (74-106); SGOT/AST 49 U/L (15-37); SGPT/ALT 47 U/L (13-61); SODIUM 143 mmol/L (136-145); TOT PROT 7.2 g/dl (6.4-8.2)
--- NOTE | 2018-08-29 11:28 | PN ---
S COWS - Scale Resting Pulse: 0= [place] 80 or Below Sweatin=Flushed/Facial Moisture Restless Observation: 1= Difficult to Sit Still Pupil Size: 0= Normal to Room Light Bone or Joint Aches: 2= Severe Diffuse Aches Runny Nose/ Eye Tearin= Runny Nose/Eyes GI Upset > 30mins: 1= Stomach Cramp Tremor Observation of Outstretched Hands: 2= Slight Tremor Visible Yawning Observation: 2= >3x During Session Anxiety or Irritability: 2=Irritable/Anxious Goose Flesh Skin: 0=Smooth Skin COWS Score: 14 S Progress Note (SOAP) Subjective: sweats shakes cough chest congestions body aches Objective: 08/29/18 11:26 Vital Signs Temperature 98.1 F 08/29/18 09:35 Pulse Rate 76 08/29/18 09:35 Respiratory Rate 16 08/29/18 09:35 Blood Pressure 146/95 08/29/18 09:35 O2 Sat by Pulse Oximetry (%) Laboratory Tests 08/29/18 08/29/18 05:30 05:30 WBC 4.4 RBC 3.94 L Hgb 12.4 Hct 36.8 MCV 93.2 MCH 31.3 MCHC 33.6 RDW 14.4 Plt Count 209 MPV 8.8 Sodium 143 Potassium 4.0 Chloride 108 H Carbon Dioxide 27 Anion Gap 7 L BUN 16 Creatinine 0.8 Creat Clearance w eGFR 100.36 Random Glucose 82 Calcium 9.0 Total Bilirubin 0.4 AST 49 H ALT 47 Alkaline Phosphatase 77 Total Protein 7.2 Albumin 3.4 aaox3 ambulating no acute distress Assessment: 08/29/18 11:27 withdrawal sx lungs assessed; +rales/rhonci noted +non productive cough noted Plan: continue detox increase fluids mucinex ordered z-pack ordered
[2018-08-29] MEDS ORDERED: AZITHROMYCIN 500 MG TABLET PO ONE (12:00)
[2018-08-29] MEDS: guaiFENesin 600 MG TABLET.ER (FP) PO SCH ×2 (12:42→22:18)
--- NOTE | 2018-08-29 15:20 | EKG ---
Test Reason : Blood Pressure : / mmHG Vent. Rate : 076 BPM Atrial Rate : 076 BPM P-R Int : 204 ms QRS Dur : 084 ms QT Int : 374 ms P-R-T Axes : 016 032 034 degrees QTc Int : 420 ms NORMAL SINUS RHYTHM MINIMAL VOLTAGE CRITERIA FOR LVH, MAY BE NORMAL VARIANT BORDERLINE ECG WHEN COMPARED WITH ECG OF 02-DEC-2017 15:42, NO SIGNIFICANT CHANGE WAS FOUND Confirmed by WILMA LAKE MD ([id number]) on 08/29/2018 3:19:54 PM Referred By: Confirmed By:WILMA LAKE MD
[2018-08-29] MEDS: THIAMINE HCL 100 MG TABLET (FP) PO SCH (22:18)
[2018-08-29] MEDS: MELATONIN 5 MG TABLETS PO PRN (22:19)
[2018-08-30] MEDS: clonazePAM 0.5 MG TABLET PO SCH ×4 (02:46→20:45)
[2018-08-30] MEDS: guaiFENesin 200 MG/10 ML 10 ML UNIT-DOSE CUPS PO PRN ×3 (06:31→21:12)
[2018-08-30] MEDS: ASPIRIN 81 MG CHEWABLE TABLETS PO SCH (09:23)
[2018-08-30] MEDS: HYDROCHLOROTHIAZIDE 25 MG TABLET (FP) PO SCH (09:23)
[2018-08-30] MEDS: TAMSULOSIN HCL 0.4 MG CAP PO SCH (09:24)
[2018-08-30] MEDS: AZITHROMYCIN 250 MG TABLET PO SCH (09:24)
[2018-08-30] MEDS ORDERED: METHADONE HCL 10 MG TABLET (FOR DETOX USE ONLY) PO ONE (10:00)
--- NOTE | 2018-08-30 10:33 | PN ---
BHS COWS - Scale Resting Pulse: 0= [place] 80 or Below Sweatin=Flushed/Facial Moisture Restless Observation: 1= Difficult to Sit Still Pupil Size: 2= Moderately Dilated Bone or Joint Aches: 1= Mild Discomfort Runny Nose/ Eye Tearin= Nasal Congestion GI Upset > 30mins: 0= None Tremor Observation of Outstretched Hands: 0= None Yawning Observation: 0= None Anxiety or Irritability: 2=Irritable/Anxious Goose Flesh Skin: 0=Smooth Skin COWS Score: 9 BHS Progress Note (SOAP) Subjective: PATIENT C/O CHILLS,SWEATING, NASAL CONGESTION, ANXIETY AND RESTLESSNESS Objective: 08/30/18 10:32 Laboratory Tests 08/29/18 08/29/18 08/29/18 05:30 05:30 05:30 WBC 4.4 RBC 3.94 L Hgb 12.4 Hct 36.8 MCV 93.2 MCH 31.3 MCHC 33.6 RDW 14.4 Plt Count 209 MPV 8.8 Sodium 143 Potassium 4.0 Chloride 108 H Carbon Dioxide 27 Anion Gap 7 L BUN 16 Creatinine 0.8 Creat Clearance w eGFR 100.36 Random Glucose 82 Calcium 9.0 Total Bilirubin 0.4 AST 49 H ALT 47 Alkaline Phosphatase 77 Total Protein 7.2 Albumin 3.4 RPR Titer Nonreactive Vital Signs Temperature 99.1 F 08/30/18 09:31 Pulse Rate 73 08/30/18 09:31 Respiratory Rate 18 08/30/18 09:31 Blood Pressure 141/91 08/30/18 09:31 O2 Sat by Pulse Oximetry (%) PE: ALERT AND ORIENTED X 3 SKIN WARM AND MOIST +PERRLA, PUPILS MODERATELY DILATED +NASAL CONGESTION EXT FULL ROM AMB AD GERARDO ANXIOUS Assessment: 08/30/18 10:33 WITHDRAWAL SX Plan: CONTINUE DETOX ENCOURAGE FLUIDS CONTINUE TO MONITOR CLINICALLY
[2018-08-30] MEDS: NICOTINE 14 MG/24 HOURS TOPICAL PATCH TD SCH (10:53)
[2018-08-30] MEDS: PRENATAL VITAMINS W/ FOLIC ACID TABLET (FP) PO SCH (10:53)
[2018-08-30] MEDS: guaiFENesin 600 MG TABLET.ER (FP) PO SCH ×2 (12:13→21:11)
[2018-08-30] MEDS: hydrOXYzine PAMOATE 25 MG CAPSULE (FP) PO PRN (14:39)
[2018-08-30] MEDS: METHOCARBAMOL 500 MG TABLET PO PRN (14:39)
[2018-08-30] MEDS: MELATONIN 5 MG TABLETS PO PRN (21:11)
[2018-08-30] MEDS: THIAMINE HCL 100 MG TABLET (FP) PO SCH (21:11)
[2018-08-31] MEDS: clonazePAM 0.5 MG TABLET PO SCH ×4 (02:11→23:13)
[2018-08-31] MEDS ORDERED: METHADONE HCL 10 MG TABLET (FOR DETOX USE ONLY) PO ONE (10:00)
[2018-08-31] MEDS: guaiFENesin 600 MG TABLET.ER (FP) PO SCH ×2 (10:08→22:44)
[2018-08-31] MEDS: TAMSULOSIN HCL 0.4 MG CAP PO SCH (10:08)
[2018-08-31] MEDS: ASPIRIN 81 MG CHEWABLE TABLETS PO SCH (10:08)
[2018-08-31] MEDS: HYDROCHLOROTHIAZIDE 25 MG TABLET (FP) PO SCH (10:09)
[2018-08-31] MEDS: PRENATAL VITAMINS W/ FOLIC ACID TABLET (FP) PO SCH (10:09)
[2018-08-31] MEDS: NICOTINE 14 MG/24 HOURS TOPICAL PATCH TD SCH (10:09)
[2018-08-31] MEDS: AZITHROMYCIN 250 MG TABLET PO SCH (10:09)
[2018-08-31] MEDS: METHOCARBAMOL 500 MG TABLET PO PRN ×3 (10:12→22:45)
[2018-08-31] MEDS: guaiFENesin 200 MG/10 ML 10 ML UNIT-DOSE CUPS PO PRN (13:12)
--- NOTE | 2018-08-31 15:26 | PN ---
S CIWA - CIWA Score Nausea/Vomitin-No Nausea/No Vomiting Muscle Tremors: 3 Anxiety: 4-Mod. Anxious/Guarded Agitation: 3 Paroxysmal Sweats: No Perspiration Orientation: 0-Oriented Tacttile Disturbances: 1-Very Mild Itch/Numbness Auditory Disturbances: 2-Mild Harshness/Frighten Visual Disturbances: 0-None Headache: 0-None Present CIWA-Ar Total Score: 13 BHS COWS - Scale Resting Pulse: 0= [place] 80 or Below Sweatin= No chills or Flushing Restless Observation: 1= Difficult to Sit Still Pupil Size: 0= Normal to Room Light Bone or Joint Aches: 2= Severe Diffuse Aches Runny Nose/ Eye Tearin= None GI Upset > 30mins: 0= None Tremor Observation of Outstretched Hands: 2= Slight Tremor Visible Yawning Observation: 1= 1-2x During Session Anxiety or Irritability: 2=Irritable/Anxious Goose Flesh Skin: 0=Smooth Skin COWS Score: 8 BHS Progress Note (SOAP) Subjective: Tremors, Anxious, Body Aches, Interrupted Sleep. Objective: PATIENT A & O X 3, OBSERVED AMBULATING ON UNIT UNASSISTED. IN NO ACUTE DISTRESS. 08/31/18 15:23 Vital Signs Temperature 98.1 F 08/31/18 13:11 Pulse Rate 80 08/31/18 13:11 Respiratory Rate 18 08/31/18 13:11 Blood Pressure 123/73 08/31/18 13:11 O2 Sat by Pulse Oximetry (%) Laboratory Tests 08/29/18 08/29/18 08/29/18 05:30 05:30 05:30 WBC 4.4 RBC 3.94 L Hgb 12.4 Hct 36.8 MCV 93.2 MCH 31.3 MCHC 33.6 RDW 14.4 Plt Count 209 MPV 8.8 Sodium 143 Potassium 4.0 Chloride 108 H Carbon Dioxide 27 Anion Gap 7 L BUN 16 Creatinine 0.8 Creat Clearance w eGFR 100.36 Random Glucose 82 Calcium 9.0 Total Bilirubin 0.4 AST 49 H ALT 47 Alkaline Phosphatase 77 Total Protein 7.2 Albumin 3.4 RPR Titer Nonreactive LABS NOTED. Assessment: 08/31/18 15:24 WITHDRAWAL SYMPTOMS. Plan: CONTINUE DETOX. PATIENT SCHEDULED FOR D/C TOMORROW. PATIENT EXPRESS INTEREST IN GOING TO [facility] ([place], [place]) FOR AFTERCARE.
[2018-08-31] MEDS: hydrOXYzine PAMOATE 25 MG CAPSULE (FP) PO PRN ×2 (17:34→22:45)
[2018-08-31] MEDS: THIAMINE HCL 100 MG TABLET (FP) PO SCH (22:44)
[2018-08-31] MEDS: NICOTINE POLACRILEX 2 MG GUM BUC PRN (22:56)
[2018-09-01] MEDS: clonazePAM 0.5 MG TABLET PO SCH ×2 (05:49→12:40)
[2018-09-01] MEDS ORDERED: METHADONE HCL 5 MG TABLET (FOR DETOX USE ONLY) PO ONE (06:00)
[2018-09-01] MEDS: METHOCARBAMOL 500 MG TABLET PO PRN (06:29)
[2018-09-01] MEDS: NICOTINE POLACRILEX 2 MG GUM BUC PRN (06:44)
[2018-09-01] MEDS: guaiFENesin 200 MG/10 ML 10 ML UNIT-DOSE CUPS PO PRN (06:44)
[2018-09-01 10:20] VITALS: BP 141/99; PULSE 85; TEMP 98.3
[2018-09-01] MEDS: PRENATAL VITAMINS W/ FOLIC ACID TABLET (FP) PO SCH (10:26)
[2018-09-01] MEDS: HYDROCHLOROTHIAZIDE 25 MG TABLET (FP) PO SCH (10:26)
[2018-09-01] MEDS: AZITHROMYCIN 250 MG TABLET PO SCH (10:26)
[2018-09-01] MEDS: guaiFENesin 600 MG TABLET.ER (FP) PO SCH (10:26)
[2018-09-01] MEDS: ASPIRIN 81 MG CHEWABLE TABLETS PO SCH (10:26)
[2018-09-01] MEDS: TAMSULOSIN HCL 0.4 MG CAP PO SCH (10:27)
[2018-09-01] MEDS: NICOTINE 14 MG/24 HOURS TOPICAL PATCH TD SCH (10:28)
--- NOTE | 2018-09-01 13:00 | DS ---
[facility] Detox Discharge Summary Admission Date: 08/28/18 Discharge Date: 09/01/18 - History Present History: Opioid Dependence Additional Comments: PATIENT SCHEDULED FOR DISCHARGE FROM DETOX UNIT TO DAY. PATIENT GOING TO [facility] ([place]) FOR AFTERCARE. PATIENT WAS DISCHARGED FROM DETOX UNIT TO BE TAKEN OVER TO REHAB UNIT IN STABLE MEDICAL CONDITION. Pertinent Past History: HTN, History Of Acid Reflux, History of Herniated Spinal Discs in Lower Back with Low Back Pain, History Of BPH. - Physical Exam Results Vital Signs: Vital Signs Temperature 98.3 F 09/01/18 10:20 Pulse Rate 85 09/01/18 10:20 Respiratory Rate 18 09/01/18 10:20 Blood Pressure 141/99 09/01/18 10:20 O2 Sat by Pulse Oximetry (%) Pertinent Admission Physical Exam Findings: WITHDRAWAL SYMPTOMS. Laboratory Tests 08/29/18 08/29/18 08/29/18 05:30 05:30 05:30 WBC 4.4 RBC 3.94 L Hgb 12.4 Hct 36.8 MCV 93.2 MCH 31.3 MCHC 33.6 RDW 14.4 Plt Count 209 MPV 8.8 Sodium 143 Potassium 4.0 Chloride 108 H Carbon Dioxide 27 Anion Gap 7 L BUN 16 Creatinine 0.8 Creat Clearance w eGFR 100.36 Random Glucose 82 Calcium 9.0 Total Bilirubin 0.4 AST 49 H ALT 47 Alkaline Phosphatase 77 Total Protein 7.2 Albumin 3.4 RPR Titer Nonreactive LABS NOTED. - Treatment Hospital Course: Detox Protocol Followed, Detoxed Safely, Responded well, Discharged Condition Good, Rehab Referral Accepted Patient has Accepted a Rehab Referral to: [facility] ([place], [place]). - Medication Discharge Medications: Ambulatory Orders Aspirin [ASA -] 81 mg PO DAILY 12/02/17 Hydrochlorothiazide [Hctz -] 25 mg PO DAILY 12/02/17 Tamsulosin HCl [Flomax -] 0.4 mg PO DAILY 12/02/17 Azithromycin 250 mg PO DAILY 3 Days #3 tablet 08/31/18 - Diagnosis (1) Low back pain Status: Acute Qualifiers: Chronicity: chronic Back pain laterality: unspecified Sciatica presence: unspecified whether sciatica present Qualified Code(s): M54.5 - Low back pain ; G89.29 - Other chronic pain (2) Opioid dependence with withdrawal Status: Acute (3) Essential hypertension Status: Chronic (4) GERD (gastroesophageal reflux disease) Status: Chronic Qualifiers: Esophagitis presence: without esophagitis Qualified Code(s): K21.9 - Gastro -esophageal reflux disease without esophagitis - AMA Did Patient Leave Against Medical Advice: No
--- NOTE | 2018-09-01 13:17 | PN ---
BHS Progress Note Note: RESULTS OF CXR DONE (FOR C/O COUGH) WHILE ADMITTED FOR DETOX NOTED. NO ACUTE CHEST PATHOLOGY NOTED NO CXR REPORT. Jonah HAWTHORNE NP
== END 2018-09-01 12:46 | disposition other institution (70) | DRG 773 ==
LOC: YASAS 14:26 → Y6N 19:41
PROVIDERS: ADMIT Surgery; ATTEND Surgery
PROC: HZ2ZZZZ Detoxification Services for Substance Abuse Treatment (ICD-10-PCS; principal; 2018-08-28)
DX: F11.23 Opioid dependence with withdrawal (principal); I10 Essential (primary) hypertension; K21.9 Gastro-esophageal reflux disease without esophagitis; M54.5 Low back pain; G89.29 Other chronic pain; Z88.0 Allergy status to penicillin; Z91.013 Allergy to seafood
CPT/HCPCS: 36415; 71046-TC-FY; 80053; 85027; 86593; 93005; 93010; J0735

== ENCOUNTER 2018-09-01 13:06 | Inpatient (IN) | payer OTHER ==
[~2018-09-01 13:06] MED LIST: LOPERAMIDE HCL 2 MG CAPSULE PO PRN; MAG HYDROX/AL HYDROX/SIMETH 30 ML UNIT-DOSE CUP PO PRN; MAGNESIUM CITRATE 300 ML BOTTLE PO PRN; MAGNESIUM HYDROX 2400MG/30ML ORAL SUSPENSION 30 ML CUP PO PRN; MENTHOL/PHENOL 1 EACH UD MM PRN; P-EPHED 60MG/TRIPROLIDI 2.5MG TABLET PO PRN
--- NOTE | 2018-09-01 13:09 | HP ---
[facility] Rehab Assess/Revision - Admission History Admitted to Rehab from: [facility] Date of Admission to Rehab: 09/01/2018 - Vital signs Vital Signs: NOTED; STABLE. - Findings Detox History & Physical reviewed: Yes Concur with findings: Yes Comments/Additional Findings: PATIENT'S MEDICAL / MEDICATION HISTORY REVIEWED PRIOR TO DISCHARGE FROM DETOX UNIT. REMAINDER OF AZITHROMYCIN (Z-PACK) STARTED FOR PATIENT FOR URI WHILE ON DETOX UNIT TO BE COMPLETED DURING ADMISSION ON REHAB UNIT. PATIENT WAS DISCHARGED FROM DETOX UNIT TO BE TAKEN OVER TO REHAB UNIT IN STABLE MEDICAL CONDITION. Inpatient Rehab Admission - Rehab Decision to Admit Inpatient rehab admission?: Yes - Initial Determination Are CD services needed?: Yes Free of communicable disease: Yes Not in need of hospitalization: Yes - Rehab Admission Criteria Previous failed treatment: Yes Poor recovery environment: Yes Comorbidities: Yes Lacks judgement: No Patient is meeting Inpatient Rehab admission criteria:: Yes
[2018-09-01] MEDS: NICOTINE POLACRILEX 2 MG GUM BUC PRN ×2 (14:34→22:08)
[2018-09-01] MEDS: guaiFENesin 200 MG/10 ML 10 ML UNIT-DOSE CUPS PO PRN ×2 (15:09→22:08)
--- NOTE | 2018-09-01 15:55 | PN ---
[facility] Progress Note Note: Client requesting to start suboxone, says he was on it when in the community. WAREHOUSE PRICING AND INVENTORY CLERK checked by this provider; he has been getting suboxone for over 1 year, with some breaks in treatment. In addition, his doses and prescribers have varied, although now he says he has one prescriber. His urine was positive for methadone, opiates, cannabis, and suboxone. A urine toxicology has been ordered.
[2018-09-01] MEDS: THIAMINE HCL 100 MG TABLET (FP) PO SCH (22:03)
[2018-09-01] MEDS: MELATONIN 5 MG TABLETS PO PRN (22:08)
[2018-09-02] MEDS: ACETAMINOPHEN 325 MG TABLET (FP) PO PRN ×3 (00:45→11:01)
[2018-09-02] MEDS: guaiFENesin 200 MG/10 ML 10 ML UNIT-DOSE CUPS PO PRN (06:01)
[2018-09-02] MEDS: TAMSULOSIN HCL 0.4 MG CAP PO SCH (08:50)
[2018-09-02] MEDS: ASPIRIN 81 MG CHEWABLE TABLETS PO SCH (10:24)
[2018-09-02] MEDS: NICOTINE 14 MG/24 HOURS TOPICAL PATCH TD SCH (10:24)
[2018-09-02] MEDS: HYDROCHLOROTHIAZIDE 25 MG TABLET (FP) PO SCH (10:24)
[2018-09-02] MEDS: PRENATAL VITAMINS W/ FOLIC ACID TABLET (FP) PO SCH (10:24)
[2018-09-02] MEDS: AZITHROMYCIN 250 MG TABLET PO SCH (10:24)
[2018-09-02] MEDS: guaiFENesin 600 MG TABLET.ER (FP) PO SCH ×2 (10:28→21:02)
[2018-09-02] MEDS: NICOTINE POLACRILEX 2 MG GUM BUC PRN (13:29)
[2018-09-02] MEDS ORDERED: CYCLOBENZAPRINE HCL 10 MG TABLET (FP) PO SCH (14:00)
--- NOTE | 2018-09-02 15:41 | PN ---
S Progress Note Note: Discussed with patient the results of the Urine toxicology. Will order again to monitor.
[2018-09-02] MEDS: METHOCARBAMOL 500 MG TABLET PO SCH ×2 (19:24→21:02)
[2018-09-02] MEDS: THIAMINE HCL 100 MG TABLET (FP) PO SCH (21:02)
[2018-09-03] MEDS: ACETAMINOPHEN 325 MG TABLET (FP) PO PRN ×2 (06:02→19:45)
[2018-09-03] MEDS: TAMSULOSIN HCL 0.4 MG CAP PO SCH (08:40)
[2018-09-03] MEDS: HYDROCHLOROTHIAZIDE 25 MG TABLET (FP) PO SCH (10:40)
[2018-09-03] MEDS: AZITHROMYCIN 250 MG TABLET PO SCH (10:40)
[2018-09-03] MEDS: NICOTINE 14 MG/24 HOURS TOPICAL PATCH TD SCH (10:40)
[2018-09-03] MEDS: METHOCARBAMOL 500 MG TABLET PO SCH ×4 (10:40→22:03)
[2018-09-03] MEDS: ASPIRIN 81 MG CHEWABLE TABLETS PO SCH (10:40)
[2018-09-03] MEDS: guaiFENesin 600 MG TABLET.ER (FP) PO SCH ×2 (10:41→22:03)
[2018-09-03] MEDS: PRENATAL VITAMINS W/ FOLIC ACID TABLET (FP) PO SCH (10:41)
[2018-09-03] MEDS: NICOTINE POLACRILEX 2 MG GUM BUC PRN ×2 (12:56→22:03)
[2018-09-03] MEDS ORDERED: PT OWN MED DRAWER 7, Y5N ONE (20:36)
[2018-09-03] MEDS: THIAMINE HCL 100 MG TABLET (FP) PO SCH (22:03)
[2018-09-04] MEDS ORDERED: PT OWN MED DRAWER 7, Y5N ONE ×3 (08:56→19:25)
[2018-09-04] MEDS: METHOCARBAMOL 500 MG TABLET PO SCH ×4 (09:24→21:36)
[2018-09-04] MEDS: NICOTINE 14 MG/24 HOURS TOPICAL PATCH TD SCH (09:24)
[2018-09-04] MEDS: guaiFENesin 600 MG TABLET.ER (FP) PO SCH ×2 (09:24→21:35)
[2018-09-04] MEDS: ASPIRIN 81 MG CHEWABLE TABLETS PO SCH (09:24)
[2018-09-04] MEDS: AZITHROMYCIN 250 MG TABLET PO SCH (09:24)
[2018-09-04] MEDS: TAMSULOSIN HCL 0.4 MG CAP PO SCH (09:24)
[2018-09-04] MEDS: HYDROCHLOROTHIAZIDE 25 MG TABLET (FP) PO SCH (09:24)
[2018-09-04] MEDS: PRENATAL VITAMINS W/ FOLIC ACID TABLET (FP) PO SCH (09:24)
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
--- NOTE | 2018-09-04 09:54 | PN ---
BHS COWS - Scale Resting Pulse: 1= [place] 81-100 Sweatin= Beads of Sweat on Face Restless Observation: 1= Difficult to Sit Still Pupil Size: 0= Normal to Room Light Bone or Joint Aches: 2= Severe Diffuse Aches Runny Nose/ Eye Tearin= None GI Upset > 30mins: 0= None Tremor Observation of Outstretched Hands: 2= Slight Tremor Visible Yawning Observation: 0= None Anxiety or Irritability: 2=Irritable/Anxious Goose Flesh Skin: 0=Smooth Skin COWS Score: 11
[2018-09-04] MEDS ORDERED: BUPRENORPHINE/NALOXONE 2 MG/0.5 MG FILM PACKET SL ONE ×2 (10:05→13:00)
[2018-09-04] MEDS: NICOTINE POLACRILEX 2 MG GUM BUC PRN ×4 (10:36→21:36)
[2018-09-04] MEDS: ACETAMINOPHEN 325 MG TABLET (FP) PO PRN (15:31)
[2018-09-04] MEDS: THIAMINE HCL 100 MG TABLET (FP) PO SCH (21:35)
[2018-09-05] MEDS: TAMSULOSIN HCL 0.4 MG CAP PO SCH (07:49)
[2018-09-05] MEDS: METHOCARBAMOL 500 MG TABLET PO SCH ×4 (10:04→21:39)
[2018-09-05] MEDS: NICOTINE 14 MG/24 HOURS TOPICAL PATCH TD SCH (10:04)
[2018-09-05] MEDS: BUPRENORPHINE/NALOXONE 8 MG/2 MG FILM PACKET SL SCH (10:04)
[2018-09-05] MEDS: ASPIRIN 81 MG CHEWABLE TABLETS PO SCH (10:05)
[2018-09-05] MEDS: PRENATAL VITAMINS W/ FOLIC ACID TABLET (FP) PO SCH (10:05)
[2018-09-05] MEDS: guaiFENesin 600 MG TABLET.ER (FP) PO SCH ×2 (10:05→21:39)
[2018-09-05] MEDS: HYDROCHLOROTHIAZIDE 25 MG TABLET (FP) PO SCH (10:05)
[2018-09-05] MEDS: NICOTINE POLACRILEX 2 MG GUM BUC PRN ×4 (10:47→21:41)
[2018-09-05] MEDS: THIAMINE HCL 100 MG TABLET (FP) PO SCH (21:39)
[2018-09-05] MEDS: MELATONIN 5 MG TABLETS PO PRN (21:40)
[2018-09-06] MEDS: TAMSULOSIN HCL 0.4 MG CAP PO SCH (07:59)
[2018-09-06] MEDS: BUPRENORPHINE/NALOXONE 8 MG/2 MG FILM PACKET SL SCH (09:50)
[2018-09-06] MEDS: PRENATAL VITAMINS W/ FOLIC ACID TABLET (FP) PO SCH (09:50)
[2018-09-06] MEDS: HYDROCHLOROTHIAZIDE 25 MG TABLET (FP) PO SCH (09:50)
[2018-09-06] MEDS: METHOCARBAMOL 500 MG TABLET PO SCH ×4 (09:50→21:16)
[2018-09-06] MEDS: ASPIRIN 81 MG CHEWABLE TABLETS PO SCH (09:50)
[2018-09-06] MEDS: NICOTINE 14 MG/24 HOURS TOPICAL PATCH TD SCH (09:50)
[2018-09-06] MEDS: guaiFENesin 600 MG TABLET.ER (FP) PO SCH ×2 (09:50→21:16)
[2018-09-06] MEDS: NICOTINE POLACRILEX 2 MG GUM BUC PRN ×3 (10:06→21:17)
[2018-09-06] MEDS: THIAMINE HCL 100 MG TABLET (FP) PO SCH (21:16)
[2018-09-06] MEDS: MELATONIN 5 MG TABLETS PO PRN (21:17)
[2018-09-07] MEDS: TAMSULOSIN HCL 0.4 MG CAP PO SCH (07:40)
[2018-09-07] MEDS: ACETAMINOPHEN 325 MG TABLET (FP) PO PRN (07:57)
[2018-09-07] MEDS: ASPIRIN 81 MG CHEWABLE TABLETS PO SCH (10:14)
[2018-09-07] MEDS: METHOCARBAMOL 500 MG TABLET PO SCH ×4 (10:14→21:31)
[2018-09-07] MEDS: BUPRENORPHINE/NALOXONE 8 MG/2 MG FILM PACKET SL SCH ×2 (10:14→13:33)
[2018-09-07] MEDS: NICOTINE 14 MG/24 HOURS TOPICAL PATCH TD SCH (10:14)
[2018-09-07] MEDS: HYDROCHLOROTHIAZIDE 25 MG TABLET (FP) PO SCH (10:14)
[2018-09-07] MEDS: guaiFENesin 600 MG TABLET.ER (FP) PO SCH ×2 (10:14→21:31)
[2018-09-07] MEDS: PRENATAL VITAMINS W/ FOLIC ACID TABLET (FP) PO SCH (10:15)
--- NOTE | 2018-09-07 10:21 | PN ---
BHS COWS - Scale Resting Pulse: 1= [place] 81-100 Sweatin= Chills/Flushing Restless Observation: 0= Sits Still Pupil Size: 0= Normal to Room Light Bone or Joint Aches: 1= Mild Discomfort Runny Nose/ Eye Tearin= None GI Upset > 30mins: 0= None Tremor Observation of Outstretched Hands: 2= Slight Tremor Visible Yawning Observation: 0= None Anxiety or Irritability: 2=Irritable/Anxious Goose Flesh Skin: 0=Smooth Skin COWS Score: 7 BHS Progress Note (SOAP) Subjective: PATIENT SEEN FOR SUBOXONE MAT. PATIENT C/O ANXIETY, SHAKES AND CHILLS. Objective: 09/07/18 10:19 PE: ALERT AND ORIENTED X 3 SKIN WARM AND DRY +PERRLA, EOMS INTACT BL EXT FULL ROM, +TREMORS AMB AD GERARDO Assessment: 09/07/18 10:19 OPIOD USE DISORDER WITHDRAWAL SX SUBOXONE MAT Plan: WILL INCREASE SUBOXONE 8MG BID CONTINUE IBU/APAP PRN FOR BODY ACHES CONTINUE TO MONITOR CLINICALLY
[2018-09-07] MEDS: NICOTINE POLACRILEX 2 MG GUM BUC PRN ×3 (11:30→21:31)
[2018-09-07] MEDS ORDERED: PT OWN MED DRAWER 7, Y5N ONE (20:35)
[2018-09-07] MEDS: THIAMINE HCL 100 MG TABLET (FP) PO SCH (21:31)
[2018-09-08] MEDS: TAMSULOSIN HCL 0.4 MG CAP PO SCH (07:52)
[2018-09-08] MEDS: BUPRENORPHINE/NALOXONE 8 MG/2 MG FILM PACKET SL SCH ×2 (09:41→13:52)
[2018-09-08] MEDS: PRENATAL VITAMINS W/ FOLIC ACID TABLET (FP) PO SCH (09:41)
[2018-09-08] MEDS: ASPIRIN 81 MG CHEWABLE TABLETS PO SCH (09:41)
[2018-09-08] MEDS: guaiFENesin 600 MG TABLET.ER (FP) PO SCH ×2 (09:42→21:13)
[2018-09-08] MEDS: NICOTINE POLACRILEX 2 MG GUM BUC PRN ×4 (09:42→21:14)
[2018-09-08] MEDS: METHOCARBAMOL 500 MG TABLET PO SCH ×4 (09:42→21:13)
[2018-09-08] MEDS: HYDROCHLOROTHIAZIDE 25 MG TABLET (FP) PO SCH (09:42)
[2018-09-08] MEDS: NICOTINE 14 MG/24 HOURS TOPICAL PATCH TD SCH (09:42)
[2018-09-08] MEDS: VITAMINS A AND D TOPICAL OINTMENT 60 GM TUBE TP SCH ×3 (12:49→23:09)
[2018-09-08] MEDS: THIAMINE HCL 100 MG TABLET (FP) PO SCH (21:12)
[2018-09-09] MEDS: VITAMINS A AND D TOPICAL OINTMENT 60 GM TUBE TP SCH ×4 (06:15→23:02)
[2018-09-09] MEDS: TAMSULOSIN HCL 0.4 MG CAP PO SCH (08:06)
[2018-09-09] MEDS: NICOTINE POLACRILEX 2 MG GUM BUC PRN ×4 (08:33→21:41)
[2018-09-09] MEDS: NICOTINE 14 MG/24 HOURS TOPICAL PATCH TD SCH (10:17)
[2018-09-09] MEDS: ASPIRIN 81 MG CHEWABLE TABLETS PO SCH (10:17)
[2018-09-09] MEDS: PRENATAL VITAMINS W/ FOLIC ACID TABLET (FP) PO SCH (10:18)
[2018-09-09] MEDS: HYDROCHLOROTHIAZIDE 25 MG TABLET (FP) PO SCH (10:18)
[2018-09-09] MEDS: METHOCARBAMOL 500 MG TABLET PO SCH ×4 (10:18→21:41)
[2018-09-09] MEDS: BUPRENORPHINE/NALOXONE 8 MG/2 MG FILM PACKET SL SCH ×2 (10:18→14:41)
[2018-09-09] MEDS: guaiFENesin 600 MG TABLET.ER (FP) PO SCH ×2 (10:18→21:41)
[2018-09-09] MEDS: ACETAMINOPHEN 325 MG TABLET (FP) PO PRN (10:19)
[2018-09-09] MEDS: THIAMINE HCL 100 MG TABLET (FP) PO SCH (21:41)
[2018-09-09] MEDS: MELATONIN 5 MG TABLETS PO PRN (21:42)
[2018-09-10] MEDS: ACETAMINOPHEN 325 MG TABLET (FP) PO PRN (06:35)
[2018-09-10] MEDS: VITAMINS A AND D TOPICAL OINTMENT 60 GM TUBE TP SCH ×3 (06:47→17:06)
[2018-09-10] MEDS: TAMSULOSIN HCL 0.4 MG CAP PO SCH (07:30)
[2018-09-10] MEDS: PRENATAL VITAMINS W/ FOLIC ACID TABLET (FP) PO SCH (10:20)
[2018-09-10] MEDS: METHOCARBAMOL 500 MG TABLET PO SCH ×4 (10:20→21:31)
[2018-09-10] MEDS: ASPIRIN 81 MG CHEWABLE TABLETS PO SCH (10:20)
[2018-09-10] MEDS: NICOTINE 14 MG/24 HOURS TOPICAL PATCH TD SCH (10:20)
[2018-09-10] MEDS: guaiFENesin 600 MG TABLET.ER (FP) PO SCH ×2 (10:20→21:31)
[2018-09-10] MEDS: NICOTINE POLACRILEX 2 MG GUM BUC PRN ×3 (10:20→21:32)
[2018-09-10] MEDS: HYDROCHLOROTHIAZIDE 25 MG TABLET (FP) PO SCH (10:20)
[2018-09-10] MEDS: BUPRENORPHINE/NALOXONE 8 MG/2 MG FILM PACKET SL SCH ×2 (10:20→13:50)
[2018-09-10] MEDS: MELATONIN 5 MG TABLETS PO PRN (21:31)
[2018-09-10] MEDS: THIAMINE HCL 100 MG TABLET (FP) PO SCH (21:32)
[2018-09-11] MEDS: VITAMINS A AND D TOPICAL OINTMENT 60 GM TUBE TP SCH ×4 (01:11→20:40)
[2018-09-11] MEDS: NICOTINE POLACRILEX 2 MG GUM BUC PRN ×3 (06:32→16:38)
[2018-09-11] MEDS: TAMSULOSIN HCL 0.4 MG CAP PO SCH (07:30)
[2018-09-11] MEDS: ASPIRIN 81 MG CHEWABLE TABLETS PO SCH (09:59)
[2018-09-11] MEDS: PRENATAL VITAMINS W/ FOLIC ACID TABLET (FP) PO SCH (09:59)
[2018-09-11] MEDS: guaiFENesin 600 MG TABLET.ER (FP) PO SCH ×2 (10:00→21:33)
[2018-09-11] MEDS: BUPRENORPHINE/NALOXONE 8 MG/2 MG FILM PACKET SL SCH ×2 (10:00→15:12)
[2018-09-11] MEDS: HYDROCHLOROTHIAZIDE 25 MG TABLET (FP) PO SCH (10:00)
[2018-09-11] MEDS: METHOCARBAMOL 500 MG TABLET PO SCH ×4 (10:00→21:33)
[2018-09-11] MEDS: NICOTINE 14 MG/24 HOURS TOPICAL PATCH TD SCH (10:02)
[2018-09-11] MEDS: THIAMINE HCL 100 MG TABLET (FP) PO SCH (21:32)
[2018-09-12] MEDS: VITAMINS A AND D TOPICAL OINTMENT 60 GM TUBE TP SCH ×4 (03:33→17:00)
[2018-09-12] MEDS: TAMSULOSIN HCL 0.4 MG CAP PO SCH (07:38)
[2018-09-12] MEDS: PRENATAL VITAMINS W/ FOLIC ACID TABLET (FP) PO SCH (10:06)
[2018-09-12] MEDS: ASPIRIN 81 MG CHEWABLE TABLETS PO SCH (10:06)
[2018-09-12] MEDS: NICOTINE 14 MG/24 HOURS TOPICAL PATCH TD SCH (10:06)
[2018-09-12] MEDS: METHOCARBAMOL 500 MG TABLET PO SCH ×4 (10:06→21:14)
[2018-09-12] MEDS: HYDROCHLOROTHIAZIDE 25 MG TABLET (FP) PO SCH (10:06)
[2018-09-12] MEDS: BUPRENORPHINE/NALOXONE 8 MG/2 MG FILM PACKET SL SCH ×2 (10:06→14:05)
[2018-09-12] MEDS: guaiFENesin 600 MG TABLET.ER (FP) PO SCH ×2 (10:07→22:26)
[2018-09-12] MEDS: NICOTINE POLACRILEX 2 MG GUM BUC PRN ×4 (10:08→21:15)
[2018-09-12] MEDS ORDERED: PT OWN MED DRAWER 7, Y5N ONE (17:03)
[2018-09-12] MEDS: MELATONIN 5 MG TABLETS PO PRN (21:14)
[2018-09-12] MEDS: THIAMINE HCL 100 MG TABLET (FP) PO SCH (21:15)
[2018-09-13] MEDS: VITAMINS A AND D TOPICAL OINTMENT 60 GM TUBE TP SCH ×5 (03:44→23:47)
[2018-09-13] MEDS: TAMSULOSIN HCL 0.4 MG CAP PO SCH (07:33)
[2018-09-13] MEDS: PRENATAL VITAMINS W/ FOLIC ACID TABLET (FP) PO SCH (10:09)
[2018-09-13] MEDS: METHOCARBAMOL 500 MG TABLET PO SCH ×4 (10:09→21:17)
[2018-09-13] MEDS: ASPIRIN 81 MG CHEWABLE TABLETS PO SCH (10:09)
[2018-09-13] MEDS: BUPRENORPHINE/NALOXONE 8 MG/2 MG FILM PACKET SL SCH ×2 (10:09→14:56)
[2018-09-13] MEDS: HYDROCHLOROTHIAZIDE 25 MG TABLET (FP) PO SCH (10:09)
[2018-09-13] MEDS: guaiFENesin 600 MG TABLET.ER (FP) PO SCH ×2 (10:10→21:17)
[2018-09-13] MEDS: NICOTINE 14 MG/24 HOURS TOPICAL PATCH TD SCH (10:10)
[2018-09-13] MEDS: NICOTINE POLACRILEX 2 MG GUM BUC PRN ×4 (10:11→21:18)
[2018-09-13] MEDS: THIAMINE HCL 100 MG TABLET (FP) PO SCH (21:18)
[2018-09-14] MEDS: VITAMINS A AND D TOPICAL OINTMENT 60 GM TUBE TP SCH ×3 (06:10→17:05)
[2018-09-14] MEDS: NICOTINE POLACRILEX 2 MG GUM BUC PRN ×3 (06:10→21:10)
[2018-09-14] MEDS: TAMSULOSIN HCL 0.4 MG CAP PO SCH (07:54)
[2018-09-14] MEDS: PRENATAL VITAMINS W/ FOLIC ACID TABLET (FP) PO SCH (09:57)
[2018-09-14] MEDS: ASPIRIN 81 MG CHEWABLE TABLETS PO SCH (09:57)
[2018-09-14] MEDS: NICOTINE 14 MG/24 HOURS TOPICAL PATCH TD SCH (09:57)
[2018-09-14] MEDS: HYDROCHLOROTHIAZIDE 25 MG TABLET (FP) PO SCH (09:58)
[2018-09-14] MEDS: METHOCARBAMOL 500 MG TABLET PO SCH ×4 (09:58→21:09)
[2018-09-14] MEDS: guaiFENesin 600 MG TABLET.ER (FP) PO SCH ×2 (09:58→21:10)
[2018-09-14] MEDS: BUPRENORPHINE/NALOXONE 8 MG/2 MG FILM PACKET SL SCH ×2 (09:59→13:36)
--- NOTE | 2018-09-14 19:48 | PN ---
BHS Progress Note Note: C/o chronic heart burn unrelieved by gavino. Will start protonix. Vital Signs - 24 hr 09/14/18 09/14/18 09/14/18 00:30 03:30 07:07 Temperature 97.6 F Pulse Rate 77 Respiratory 18 18 18 Rate Blood Pressure 146/94 09/14/18 09:47 Temperature 99.1 F Pulse Rate 105 H Respiratory 16 Rate Blood Pressure 119/81
[2018-09-14] MEDS: MELATONIN 5 MG TABLETS PO PRN (21:09)
[2018-09-14] MEDS: THIAMINE HCL 100 MG TABLET (FP) PO SCH (21:09)
[2018-09-14] MEDS: PANTOPRAZOLE 20 MG TABLET (FP) PO SCH (21:58)
[2018-09-15] MEDS: VITAMINS A AND D TOPICAL OINTMENT 60 GM TUBE TP SCH ×5 (01:33→23:58)
[2018-09-15] MEDS: NICOTINE POLACRILEX 2 MG GUM BUC PRN ×3 (06:13→21:44)
[2018-09-15] MEDS: TAMSULOSIN HCL 0.4 MG CAP PO SCH (07:38)
[2018-09-15] MEDS: PRENATAL VITAMINS W/ FOLIC ACID TABLET (FP) PO SCH (10:17)
[2018-09-15] MEDS: ASPIRIN 81 MG CHEWABLE TABLETS PO SCH (10:17)
[2018-09-15] MEDS: METHOCARBAMOL 500 MG TABLET PO SCH ×4 (10:17→21:43)
[2018-09-15] MEDS: BUPRENORPHINE/NALOXONE 8 MG/2 MG FILM PACKET SL SCH ×2 (10:17→14:12)
[2018-09-15] MEDS: HYDROCHLOROTHIAZIDE 25 MG TABLET (FP) PO SCH (10:17)
[2018-09-15] MEDS: guaiFENesin 600 MG TABLET.ER (FP) PO SCH ×2 (10:20→21:42)
[2018-09-15] MEDS: NICOTINE 14 MG/24 HOURS TOPICAL PATCH TD SCH (10:20)
[2018-09-15] MEDS: PANTOPRAZOLE 20 MG TABLET (FP) PO SCH (10:36)
[2018-09-15] MEDS: ACETAMINOPHEN 325 MG TABLET (FP) PO PRN (10:45)
[2018-09-15] MEDS ORDERED: BISMUTH SUBSALICYLATE 262 MG/15 ML BTL PO PRN (13:05)
[2018-09-15] MEDS: THIAMINE HCL 100 MG TABLET (FP) PO SCH (21:42)
[2018-09-15] MEDS: MELATONIN 5 MG TABLETS PO PRN (21:44)
[2018-09-16] MEDS: VITAMINS A AND D TOPICAL OINTMENT 60 GM TUBE TP SCH ×4 (06:04→23:19)
[2018-09-16] MEDS: TAMSULOSIN HCL 0.4 MG CAP PO SCH (07:32)
[2018-09-16] MEDS: NICOTINE POLACRILEX 2 MG GUM BUC PRN ×4 (08:37→21:07)
[2018-09-16] MEDS: HYDROCHLOROTHIAZIDE 25 MG TABLET (FP) PO SCH (09:45)
[2018-09-16] MEDS: PRENATAL VITAMINS W/ FOLIC ACID TABLET (FP) PO SCH (09:45)
[2018-09-16] MEDS: BUPRENORPHINE/NALOXONE 8 MG/2 MG FILM PACKET SL SCH ×2 (09:45→14:04)
[2018-09-16] MEDS: ASPIRIN 81 MG CHEWABLE TABLETS PO SCH (09:45)
[2018-09-16] MEDS: METHOCARBAMOL 500 MG TABLET PO SCH ×4 (09:45→21:06)
[2018-09-16] MEDS: NICOTINE 14 MG/24 HOURS TOPICAL PATCH TD SCH (09:45)
[2018-09-16] MEDS: PANTOPRAZOLE 20 MG TABLET (FP) PO SCH (09:46)
[2018-09-16] MEDS: guaiFENesin 600 MG TABLET.ER (FP) PO SCH ×2 (09:48→21:06)
[2018-09-16] MEDS: THIAMINE HCL 100 MG TABLET (FP) PO SCH (21:06)
[2018-09-16] MEDS: MELATONIN 5 MG TABLETS PO PRN (21:06)
[2018-09-17] MEDS: VITAMINS A AND D TOPICAL OINTMENT 60 GM TUBE TP SCH ×4 (05:58→23:21)
[2018-09-17] MEDS: NICOTINE POLACRILEX 2 MG GUM BUC PRN ×6 (05:58→21:38)
[2018-09-17] MEDS: TAMSULOSIN HCL 0.4 MG CAP PO SCH (07:33)
[2018-09-17] MEDS: METHOCARBAMOL 500 MG TABLET PO SCH ×4 (10:24→21:37)
[2018-09-17] MEDS: PRENATAL VITAMINS W/ FOLIC ACID TABLET (FP) PO SCH (10:24)
[2018-09-17] MEDS: ASPIRIN 81 MG CHEWABLE TABLETS PO SCH (10:24)
[2018-09-17] MEDS: HYDROCHLOROTHIAZIDE 25 MG TABLET (FP) PO SCH (10:24)
[2018-09-17] MEDS: BUPRENORPHINE/NALOXONE 8 MG/2 MG FILM PACKET SL SCH ×2 (10:25→14:03)
[2018-09-17] MEDS ORDERED: PT OWN MED DRAWER 7, Y5N ONE ×2 (10:26→20:20)
[2018-09-17] MEDS: guaiFENesin 600 MG TABLET.ER (FP) PO SCH ×2 (10:27→21:37)
[2018-09-17] MEDS: NICOTINE 14 MG/24 HOURS TOPICAL PATCH TD SCH (10:28)
[2018-09-17] MEDS: PANTOPRAZOLE 20 MG TABLET (FP) PO SCH (11:02)
[2018-09-17] MEDS: THIAMINE HCL 100 MG TABLET (FP) PO SCH (21:37)
[2018-09-17] MEDS: MELATONIN 5 MG TABLETS PO PRN (21:37)
[2018-09-18] MEDS: VITAMINS A AND D TOPICAL OINTMENT 60 GM TUBE TP SCH ×4 (06:03→23:37)
[2018-09-18] MEDS: NICOTINE POLACRILEX 2 MG GUM BUC PRN ×5 (06:03→21:13)
[2018-09-18] MEDS: TAMSULOSIN HCL 0.4 MG CAP PO SCH (07:33)
[2018-09-18] MEDS: BUPRENORPHINE/NALOXONE 8 MG/2 MG FILM PACKET SL SCH ×2 (09:43→13:49)
[2018-09-18] MEDS: METHOCARBAMOL 500 MG TABLET PO SCH ×4 (09:43→21:13)
[2018-09-18] MEDS: PRENATAL VITAMINS W/ FOLIC ACID TABLET (FP) PO SCH (09:43)
[2018-09-18] MEDS: HYDROCHLOROTHIAZIDE 25 MG TABLET (FP) PO SCH (09:43)
[2018-09-18] MEDS: ASPIRIN 81 MG CHEWABLE TABLETS PO SCH (09:43)
[2018-09-18] MEDS: NICOTINE 14 MG/24 HOURS TOPICAL PATCH TD SCH (09:43)
[2018-09-18] MEDS: PANTOPRAZOLE 20 MG TABLET (FP) PO SCH (09:44)
[2018-09-18] MEDS: guaiFENesin 600 MG TABLET.ER (FP) PO SCH ×2 (09:45→21:13)
[2018-09-18] MEDS: MELATONIN 5 MG TABLETS PO PRN (21:13)
[2018-09-18] MEDS: THIAMINE HCL 100 MG TABLET (FP) PO SCH (21:14)
[2018-09-19] MEDS: VITAMINS A AND D TOPICAL OINTMENT 60 GM TUBE TP SCH ×3 (06:07→17:00)
[2018-09-19] MEDS: NICOTINE POLACRILEX 2 MG GUM BUC PRN ×4 (06:08→16:57)
[2018-09-19] MEDS: TAMSULOSIN HCL 0.4 MG CAP PO SCH (07:49)
[2018-09-19] MEDS: PANTOPRAZOLE 20 MG TABLET (FP) PO SCH (10:25)
[2018-09-19] MEDS: HYDROCHLOROTHIAZIDE 25 MG TABLET (FP) PO SCH (10:26)
[2018-09-19] MEDS: PRENATAL VITAMINS W/ FOLIC ACID TABLET (FP) PO SCH (10:26)
[2018-09-19] MEDS: guaiFENesin 600 MG TABLET.ER (FP) PO SCH ×2 (10:26→21:59)
[2018-09-19] MEDS: NICOTINE 14 MG/24 HOURS TOPICAL PATCH TD SCH (10:26)
[2018-09-19] MEDS: BUPRENORPHINE/NALOXONE 8 MG/2 MG FILM PACKET SL SCH ×2 (10:26→13:07)
[2018-09-19] MEDS: METHOCARBAMOL 500 MG TABLET PO SCH ×4 (10:27→21:58)
[2018-09-19] MEDS: ASPIRIN 81 MG CHEWABLE TABLETS PO SCH (10:27)
[2018-09-19] MEDS: ACETAMINOPHEN 325 MG TABLET (FP) PO PRN ×2 (11:17→23:12)
[2018-09-19] MEDS: THIAMINE HCL 100 MG TABLET (FP) PO SCH (21:58)
[2018-09-20] MEDS: VITAMINS A AND D TOPICAL OINTMENT 60 GM TUBE TP SCH ×5 (00:31→23:23)
[2018-09-20] MEDS: ACETAMINOPHEN 325 MG TABLET (FP) PO PRN (06:16)
[2018-09-20] MEDS: TAMSULOSIN HCL 0.4 MG CAP PO SCH (08:08)
[2018-09-20] MEDS: NICOTINE POLACRILEX 2 MG GUM BUC PRN ×5 (08:42→21:11)
[2018-09-20] MEDS: guaiFENesin 600 MG TABLET.ER (FP) PO SCH ×2 (09:39→22:13)
[2018-09-20] MEDS: PANTOPRAZOLE 20 MG TABLET (FP) PO SCH (09:39)
[2018-09-20] MEDS: NICOTINE 14 MG/24 HOURS TOPICAL PATCH TD SCH (09:39)
[2018-09-20] MEDS: PRENATAL VITAMINS W/ FOLIC ACID TABLET (FP) PO SCH (09:39)
[2018-09-20] MEDS: BUPRENORPHINE/NALOXONE 8 MG/2 MG FILM PACKET SL SCH ×2 (09:39→14:05)
[2018-09-20] MEDS: METHOCARBAMOL 500 MG TABLET PO SCH ×4 (09:39→22:22)
[2018-09-20] MEDS: ASPIRIN 81 MG CHEWABLE TABLETS PO SCH (09:39)
[2018-09-20] MEDS: HYDROCHLOROTHIAZIDE 25 MG TABLET (FP) PO SCH (09:39)
[2018-09-20] MEDS: MELATONIN 5 MG TABLETS PO PRN (21:11)
[2018-09-20] MEDS: THIAMINE HCL 100 MG TABLET (FP) PO SCH (21:11)
[2018-09-21] MEDS: VITAMINS A AND D TOPICAL OINTMENT 60 GM TUBE TP SCH ×3 (05:58→17:30)
[2018-09-21] MEDS: NICOTINE POLACRILEX 2 MG GUM BUC PRN ×4 (05:58→17:23)
[2018-09-21] MEDS: TAMSULOSIN HCL 0.4 MG CAP PO SCH (07:31)
[2018-09-21] MEDS: HYDROCHLOROTHIAZIDE 25 MG TABLET (FP) PO SCH (09:41)
[2018-09-21] MEDS: ASPIRIN 81 MG CHEWABLE TABLETS PO SCH (09:42)
[2018-09-21] MEDS: PANTOPRAZOLE 20 MG TABLET (FP) PO SCH (09:42)
[2018-09-21] MEDS: NICOTINE 14 MG/24 HOURS TOPICAL PATCH TD SCH (09:42)
[2018-09-21] MEDS: METHOCARBAMOL 500 MG TABLET PO SCH ×4 (09:42→21:19)
[2018-09-21] MEDS: PRENATAL VITAMINS W/ FOLIC ACID TABLET (FP) PO SCH (09:42)
[2018-09-21] MEDS: BUPRENORPHINE/NALOXONE 8 MG/2 MG FILM PACKET SL SCH ×2 (09:42→13:16)
[2018-09-21] MEDS: guaiFENesin 600 MG TABLET.ER (FP) PO SCH ×2 (09:44→21:20)
--- NOTE | 2018-09-21 14:52 | PN ---
[facility] Progress Note Note: PATIENT SCHEDULED FOR DISCHARGE FROM REHAB TOMORROW. PATIENT HAS AFTERCARE ARRANGED AT [facility]. PATIENT IS TO FOLLOW UP WITH DR. CARL OZUNA AT [facility] FOR ONGOING SUBOXONE MAT. SCHEDULED APPOINTMENT FOR PATIENT FOR 10/08/18. PATIENT STATES HE IS MOTIVATED TO MAINTAIN SOBRIETY AND ENCOURAGED TO CONTINUE WITH TREATMENT TO PREVENT RELAPSE. PATIENT REMAINS MEDICALLY STABLE AT THIS TIME AND DENIES SI/HI. Vital Signs Temperature 97.8 F 09/21/18 07:24 Pulse Rate 78 09/21/18 09:30 Respiratory Rate 18 09/21/18 09:30 Blood Pressure 129/90 09/21/18 09:30 O2 Sat by Pulse Oximetry (%)
[2018-09-21] MEDS: THIAMINE HCL 100 MG TABLET (FP) PO SCH (21:19)
[2018-09-21] MEDS: MELATONIN 5 MG TABLETS PO PRN (21:19)
[2018-09-22] MEDS: VITAMINS A AND D TOPICAL OINTMENT 60 GM TUBE TP SCH ×2 (05:50)
[2018-09-22 06:44] VITALS: BP 152/95; PULSE 73; TEMP 98.8
[2018-09-22] MEDS: TAMSULOSIN HCL 0.4 MG CAP PO SCH (08:04)
[2018-09-22] MEDS: NICOTINE 14 MG/24 HOURS TOPICAL PATCH TD SCH (09:03)
[2018-09-22] MEDS: guaiFENesin 600 MG TABLET.ER (FP) PO SCH (09:03)
[2018-09-22] MEDS: BUPRENORPHINE/NALOXONE 8 MG/2 MG FILM PACKET SL SCH (09:03)
[2018-09-22] MEDS: METHOCARBAMOL 500 MG TABLET PO SCH (09:03)
[2018-09-22] MEDS: ASPIRIN 81 MG CHEWABLE TABLETS PO SCH (09:03)
[2018-09-22] MEDS: PRENATAL VITAMINS W/ FOLIC ACID TABLET (FP) PO SCH (09:03)
[2018-09-22] MEDS: HYDROCHLOROTHIAZIDE 25 MG TABLET (FP) PO SCH (09:03)
[2018-09-22] MEDS: PANTOPRAZOLE 20 MG TABLET (FP) PO SCH (09:04)
== END 2018-09-22 09:10 | disposition home or self-care (01) | DRG 772 ==
LOC: YASAS 13:06 → Y3W 13:08
PROVIDERS: ADMIT Neuromusculoskeletal Medicine & OMM; ATTEND Neuromusculoskeletal Medicine & OMM
PROC: HZ42ZZZ Group Counseling for Substance Abuse Treatment, Cognitive-Behavioral (ICD-10-PCS; principal; 2018-09-01)
DX: F11.20 Opioid dependence, uncomplicated (principal); F17.210 Nicotine dependence, cigarettes, uncomplicated; I10 Essential (primary) hypertension; J06.9 Acute upper respiratory infection, unspecified; K21.9 Gastro-esophageal reflux disease without esophagitis; R12 Heartburn; Z88.0 Allergy status to penicillin; Z91.013 Allergy to seafood

== ENCOUNTER 2018-12-31 15:30 | Inpatient (IN) | payer OTHER ==
[2018-12-31 18:33] VITALS: BMI 28.0
--- NOTE | 2018-12-31 20:08 | HP ---
COWS - Scale Resting Pulse: 1= [place] 81-100 Sweatin= Chills/Flushing Restless Observation: 3= Extraneous Movement Pupil Size: 0= Normal to Room Light Bone or Joint Aches: 0= None Runny Nose/ Eye Tearin= None GI Upset > 30mins: 1= Stomach Cramp Tremor Observation: 2= Slight Tremor Visible Yawning Observation: 0= None Anxiety or Irritability: 2=Irritable/Anxious Goose Flesh Skin: 0=Smooth Skin COWS Score: 10 CIWA Score - Admission Criteria OASAS Guidelines: Admission for Medically Managed Detox: Requires at least one of the followin. CIWA greater than 12 2. Seizures within the past 24 hours 3. Delirium tremens within the past 24 hours 4. Hallucinations within the past 24 hours 5. Acute intervention needed for co occurring medical disorder 6. Acute intervention needed for co occurring psychiatric disorder 7. Severe withdrawal that cannot be handled at a lower level of care (continued vomiting, continued diarrhea, abnormal vital signs) requiring intravenous medication and/or fluids 8. Admission ROS [facility] Allergies/Adverse Reactions: Allergies Allergy/AdvReac Type Severity Reaction Status Date / Time Fish Containing Products Allergy Severe Swelling Verified 12/31/18 18:25 mayonnaise Allergy Severe Verified 12/31/18 18:25 Penicillins Allergy Severe Swelling Verified 12/31/18 18:25 History of Present Illness: Patient Name: Thong Adam Date: 1965 Address: [address] [place] [address] Sex: Male Rx Written Rx Dispensed Drug Quantity Days Supply Prescriber Name 12/22/2018 12/22/2018 alprazolam 2 mg tablet 60 30 Nik Mercer MD 11/20/2018 11/20/2018 alprazolam 2 mg tablet 60 30 Nik Mercer MD 10/23/2018 10/23/2018 alprazolam 2 mg tablet 60 30 Nik Mercer MD 10/15/2018 10/15/2018 clonazepam 2 mg tablet 30 15 Nik Mercer MD 09/24/2018 09/24/2018 clonazepam 2 mg tablet 30 15 Nik Mercer MD 08/25/2018 08/25/2018 clonazepam 2 mg tablet 60 30 Nik Mercer MD 07/24/2018 07/24/2018 clonazepam 2 mg tablet 60 30 Mercer, Nik Monk MD 06/26/2018 06/26/2018 clonazepam 2 mg tablet 60 30 Mercer, Nik Monk MD 06/08/2018 06/08/2018 suboxone 8 mg-2 mg sl film 60 30 Cristian Coulter Marta 05/26/2018 05/26/2018 clonazepam 2 mg tablet 60 30 Mercer, Nik Monk MD 04/23/2018 04/23/2018 clonazepam 2 mg tablet 60 30 Mercer, Nik Monk MD 04/06/2018 04/16/2018 suboxone 8 mg-2 mg sl film 60 30 Cristian Coulter 03/23/2018 03/24/2018 suboxone 8 mg-2 mg sl film 50 25 Cristian Coulter Marta 03/24/2018 03/24/2018 clonazepam 2 mg tablet 60 30 Mercer, Nik Monk MD 03/20/2018 03/20/2018 suboxone 8 mg-2 mg sl film 7 7 Cristian Coulter Marta 02/20/2018 02/20/2018 clonazepam 2 mg tablet 60 30 Nik Mercer MD Patient Name: Thong Adam Date: 1965 Address: [place] [address] Sex: Male Rx Written Rx Dispensed Drug Quantity Days Supply Prescriber Name 10/09/2018 10/09/2018 buprenorphine-naloxone 8-2 mg sl film 7 7 Cherelle Roberson NP Patient Name: Thong Adam Date: 1965 Address: [address] [place] [address] Sex: Male Rx Written Rx Dispensed Drug Quantity Days Supply Prescriber Name 09/21/2018 09/22/2018 buprenorphine-naloxone 8-2 mg sl film 32 16 Janine Smith NP 08/19/2018 08/19/2018 suboxone 8 mg-2 mg sl film 24 8 Lilli Worrell Patient Name: Thong Adam Date: 1965 Address: [address] [place] [address] Sex: Male Rx Written Rx Dispensed Drug Quantity Days Supply Prescriber Name 08/14/2018 08/17/2018 buprenorphine-naloxone 8-2 mg sl tablet 12 4 Cosme Bardales MD Patient Name: Thong Adam Date: 1965 Address: [address] [place] [address] Sex: Male Rx Written Rx Dispensed Drug Quantity Days Supply Prescriber Name 07/14/2018 07/20/2018 buprenorphine-naloxone 4-1 mg sl film 20 10 Peewee Cam MD Patient Name: Thong Adam Date: 1965 Address: [address] [place] [address] Sex: Male Rx Written Rx Dispensed Drug Quantity Days Supply Prescriber Name 03/02/2018 03/02/2018 suboxone 8 mg-2 mg sl film 30 15 Huron, Amarilis L 02/16/2018 02/16/2018 suboxone 8 mg-2 mg sl film 30 30 Huron, Amarilis L 02/02/2018 02/02/2018 suboxone 8 mg-2 mg sl film 30 15 Huron, Amarilis L 01/19/2018 01/20/2018 suboxone 8 mg-2 mg sl film 15 15 Huron, Amarilis L 01/06/2018 01/06/2018 suboxone 8 mg-2 mg sl film 15 15 Shiloh Oneil pt here requesting detox from opiate use , reports relapse after d/c from this and other facility x 3 weeks ago , current daily use 6 bags heroin via inhalation , denies cocaine , cannabis use , denies other illicits or etoh . denies OD . MTD - reports he bought illicit methadone a few days ago tobacco : 1 ppd xanax - reports taking meds as rx " I need them for work " PMHX : anxiety , htn , BPH PSHx : denies PSych : denies SI / HI SHX : works f/t [employer] , legal - pending court February 2019 . - Ebola screening Have you traveled outside of the country in the last 21 days: No (N) Have you had contact with anyone from an Ebola affected area: No Do you have a fever: No - Review of Systems Constitutional: Loss of Appetite EENT: reports: No Symptoms Reported Respiratory: reports: No Symptoms reported Cardiac: reports: No Symptoms Reported GI: reports: See HPI, Diarrhea : reports: See HPI Musculoskeletal: reports: No Symptoms Reported Integumentary: reports: No Symptoms Reported Neuro: reports: Headache Endocrine: reports: No Symptoms Reported Psychiatric: reports: Orientated x3, Agitated, Anxious Patient History - Patient Medical History Hx Anemia: No Hx Asthma: No Hx Chronic Obstructive Pulmonary Disease (COPD): No Hx Cancer: No Hx Cardiac Disorders: No Hx Congestive Heart Failure: No Hx Hypertension: Yes (on medication) Hx Hypercholesterolemia: No Hx Pacemaker: No HX Cerebrovascular Accident: No Hx Seizures: No Hx Diabetes: No Hx Gastrointestinal Disorders: Yes (Hx of acid reflux.) Hx Liver Disease: No Hx Genitourinary Disorders: No Hx Sexually Transmitted Disorders: No Hx Renal Disease (ESRD): No Hx Thyroid Disease: No Hx Human Immunodeficiency Virus (HIV): No (last 07/20 negative) Hx Hepatitis C: No Hx Depression: No Hx Suicide Attempt: No Hx Bipolar Disorder: No Hx Schizophrenia: No - Patient Surgical History Past Surgical History: Yes Hx Neurologic Surgery: No Hx Cataract Extraction: No Hx Cardiac Surgery: No Hx Lung Surgery: No Hx Breast Surgery: No Hx Breast Biopsy: No Hx Abdominal Surgery: No Hx Appendectomy: No Hx Cholecystectomy: No Hx Genitourinary Surgery: No Hx Section: No Hx Orthopedic Surgery: No Other Surgical History: Pt had sx lower back herniated disc in 2016 Anesthesia Reaction: No - PPD History Date: 12/04/17 Results: 0 mm - Smoking Cessation Smoking history: Current every day smoker Have you smoked in the past 12 months: Yes Aproximately how many cigarettes per day: 6 Hx Chewing Tobacco Use: No Initiated information on smoking cessation: No - Substances abused Heroin Substance route: Inhalation Frequency: Daily Amount used: 7 bags Age of first use: 41 Date of last use: 12/31/18 Oxycontin Substance route: Oral Frequency: Daily Amount used: 30mg Age of first use: 41 Date of last use: 08/27/18 Family Disease History - Family Disease History Family History: Denies Admission Physical Exam S - Vital Signs Vital Signs: Vital Signs - 24 hr 12/31/18 18:28 Temperature 99.1 F Pulse Rate 82 Respiratory 18 Rate Blood Pressure 159/102 H - Physical General Appearance: Yes: Moderate Distress, Anxious HEENTM: Yes: EOMI, Hearing grossly Normal, Normocephalic, Normal Voice Respiratory: Yes: Lungs Clear, Normal Breath Sounds, No Respiratory Distress, No Accessory Muscle Use Neck: Yes: No masses,lesions,Nodules, Trachea in good position Cardiology: Yes: Regular Rhythm, Regular Rate, S1, S2 Abdominal: Yes: Non Tender, Soft Back: Yes: Normal Inspection Musculoskeletal: Yes: Gait Steady Extremities: Yes: Normal Range of Motion, Non-Tender Neurological: Yes: Fully Oriented, Alert, Motor Strength 5/5 Integumentary: Yes: Warm - Diagnostic (1) Opioid dependence with withdrawal Current Visit: Yes Status: Acute Breathalyzer - Breathalyzer Breathalyzer: 0 Urine Drug Screen - Test Device Lot number: [id number] Expiration date: 10/03/19 - Control Is test valid?: Yes - Results Drug screen NEGATIVE: Yes Urine drug screen results: MOP-Opiates, OXY-Oxycodone, MTD-Methadone Inpatient Rehab Admission - Rehab Decision to Admit Inpatient rehab admission?: No
[2018-12-31] MEDS ORDERED: MAG HYDROX/AL HYDROX/SIMETH 30 ML UNIT-DOSE CUP PO PRN (20:15)
[2018-12-31] MEDS ORDERED: MAGNESIUM CITRATE 300 ML BOTTLE PO PRN (20:15)
[2018-12-31] MEDS ORDERED: MENTHOL/PHENOL 1 EACH UD MM PRN (20:15)
[2018-12-31] MEDS ORDERED: MAGNESIUM HYDROX 2400MG/30ML ORAL SUSPENSION 30 ML CUP PO PRN (20:15)
[2018-12-31] MEDS ORDERED: MELATONIN 5 MG TABLETS PO PRN (20:15)
[2018-12-31] MEDS ORDERED: ACETAMINOPHEN 325 MG TABLET (FP) PO PRN (20:15)
[2018-12-31] MEDS ORDERED: METHADONE HCL 10 MG TABLET (FOR DETOX USE ONLY) PO ONE (20:16)
[2018-12-31] MEDS ORDERED: cloNIDine HCL 0.1 MG TABLET PO PRN (20:16)
[2018-12-31] MEDS: THIAMINE HCL 100 MG TABLET (FP) PO SCH (22:11)
[2018-12-31] MEDS: clonazePAM 0.5 MG TABLET PO PRN (22:12)
[2018-12-31] MEDS: NICOTINE POLACRILEX 2 MG GUM BUC PRN (22:14)
[2018-12-31] MEDS: ACETAMINOPHEN 325 MG TABLET (FP) PO PRN (23:01)
[2019-01-01] MEDS: IBUPROFEN 400 MG TABLET (FP) PO PRN (07:46)
[2019-01-01] MEDS: clonazePAM 0.5 MG TABLET PO PRN (08:42)
[2019-01-01] MEDS ORDERED: METHADONE HCL 5 MG TABLET (FOR DETOX USE ONLY) PO ONE (10:00)
[2019-01-01 10:02] LABS: HEMATOCRIT 34.9 % (35.4-49); HEMOGLOBIN 11.7 GM/dL (11.7-16.9); MCHC 33.6 g/dl (32.0-35.9); MEAN CELL VOLUME 92.2 fl (80-96); MEAN PLT VOLUME 9.2 fl (7.5-11.1); PLATELET COUNT 178 K/MM3 (134-434); RBC 3.78 M/mm3 (4.00-5.60); RDW 15.1 % (11.9-15.9); WHITE BLOOD COUNT 3.9 K/mm3 (4.0-10.0)
--- NOTE | 2019-01-01 10:04 | PN ---
BHS COWS - Scale Resting Pulse: 0= [place] 80 or Below Sweatin= Chills/Flushing Restless Observation: 1= Difficult to Sit Still Pupil Size: 1= Pupils >than Normal Bone or Joint Aches: 2= Severe Diffuse Aches Runny Nose/ Eye Tearin= Nasal Congestion GI Upset > 30mins: 1= Stomach Cramp Tremor Observation of Outstretched Hands: 2= Slight Tremor Visible Yawning Observation: 0= None Anxiety or Irritability: 2=Irritable/Anxious Goose Flesh Skin: 0=Smooth Skin COWS Score: 11 BHS Progress Note (SOAP) Subjective: Patient still in moderate withdrawals and complains of muscle aches as major symptoms right now. Was admitted late last night. Objective: 01/01/19 10:01 BP:134/84 P:75 R:18 T:98.0 All labs still pending. Assessment: 01/01/19 10:02 1. Opioid Dependence with withdrawals Plan: 1. Patient encouraged to intake PO fluids and ask for prn meds for muscle aches and pains. Encouraged patient that he will feel better as medications for withdrawals take effect. Noted elevation in BP may be due to stress of withdrawals. Will continue to monitor and observe.
[2019-01-01 10:08] LABS: ALBUMIN 3.2 g/dl (3.4-5.0); BILIRUBIN,TOTAL 0.4 mg/dL (0.2-1); BLOOD UREA NITROGEN 14.6 mg/dL (7-18); CALCIUM 8.9 mg/dL (8.5-10.1); CREATININE 0.8 mg/dL (0.55-1.3); POTASSIUM 4.4 mmol/L (3.5-5.1); TOT PROT 6.6 g/dl (6.4-8.2)
[2019-01-01] MEDS: ASPIRIN 81 MG CHEWABLE TABLETS PO SCH (10:46)
[2019-01-01] MEDS: TAMSULOSIN HCL 0.4 MG CAP PO SCH (10:46)
[2019-01-01] MEDS: HYDROCHLOROTHIAZIDE 25 MG TABLET (FP) PO SCH (10:46)
[2019-01-01] MEDS: PRENATAL VITAMINS W/ FOLIC ACID TABLET (FP) PO SCH (10:47)
[2019-01-01] MEDS: hydrOXYzine PAMOATE 25 MG CAPSULE (FP) PO PRN ×2 (10:50→17:41)
[2019-01-01] MEDS: NICOTINE POLACRILEX 2 MG GUM BUC PRN (10:51)
[2019-01-01] MEDS: NICOTINE 21 MG/24 HOURS TOPICAL PATCH TD SCH (12:28)
[2019-01-01] MEDS: ACETAMINOPHEN 325 MG TABLET (FP) PO PRN (17:41)
[2019-01-01] MEDS: THIAMINE HCL 100 MG TABLET (FP) PO SCH (22:26)
[2019-01-02] MEDS: IBUPROFEN 400 MG TABLET (FP) PO PRN ×2 (07:28→23:12)
[2019-01-02] MEDS: METHOCARBAMOL 500 MG TABLET PO PRN (08:36)
[2019-01-02] MEDS: hydrOXYzine PAMOATE 25 MG CAPSULE (FP) PO PRN ×2 (08:36→19:45)
[2019-01-02] MEDS: clonazePAM 0.5 MG TABLET PO PRN ×2 (08:36→14:55)
--- NOTE | 2019-01-02 09:45 | PN ---
S COWS - Scale Resting Pulse: 0= [place] 80 or Below Sweatin= Beads of Sweat on Face Restless Observation: 1= Difficult to Sit Still Pupil Size: 0= Normal to Room Light Bone or Joint Aches: 4=Acute Joint/Muscle Pain Runny Nose/ Eye Tearin= None GI Upset > 30mins: 0= None Tremor Observation of Outstretched Hands: 1= Tremor [place], Not Seen Yawning Observation: 1= 1-2x During Session Anxiety or Irritability: 2=Irritable/Anxious Goose Flesh Skin: 0=Smooth Skin COWS Score: 12 S Progress Note (SOAP) Subjective: c/o sweats, anxiety, irritability, and muscle pain. Objective: 01/02/19 09:44 Vital Signs 01/02/19 01/02/19 01/02/19 03:30 06:26 09:23 Temperature 98.2 F 98.1 F Pulse Rate 67 72 Respiratory 18 18 17 Rate Blood Pressure 132/83 134/82 Lab Results WBC 3.9 K/mm3 (4.0-10.0) L 01/01/19 07:30 RBC 3.78 M/mm3 (4.00-5.60) L 01/01/19 07:30 Hgb 11.7 GM/dL (11.7-16.9) 01/01/19 07:30 Hct 34.9 % (35.4-49) L 01/01/19 07:30 MCV 92.2 fl (80-96) 01/01/19 07:30 MCHC 33.6 g/dl (32.0-35.9) 01/01/19 07:30 RDW 15.1 % (11.9-15.9) 01/01/19 07:30 Plt Count 178 K/MM3 (134-434) 01/01/19 07:30 Sodium 140 mmol/L (136-145) 01/01/19 07:30 Potassium 4.4 mmol/L (3.5-5.1) 01/01/19 07:30 Chloride 107 mmol/L (98-107) 01/01/19 07:30 Carbon Dioxide 29 mmol/L (21-32) 01/01/19 07:30 Anion Gap 5 MMOL/L (8-16) L 01/01/19 07:30 BUN 14.6 mg/dL (7-18) 01/01/19 07:30 Creatinine 0.8 mg/dL (0.55-1.3) 01/01/19 07:30 Random Glucose 88 mg/dL (74-106) 01/01/19 07:30 Calcium 8.9 mg/dL (8.5-10.1) 01/01/19 07:30 Labs noted. Assessment: 01/02/19 09:45 AOX3, in no respiratory distress. Full ROM, ambulating in the unit. Withdrawal symptoms. Plan: continue detox.
[2019-01-02] MEDS ORDERED: METHADONE HCL 10 MG TABLET (FOR DETOX USE ONLY) PO ONE (10:00)
[2019-01-02] MEDS: NICOTINE 21 MG/24 HOURS TOPICAL PATCH TD SCH (10:16)
[2019-01-02] MEDS: ASPIRIN 81 MG CHEWABLE TABLETS PO SCH (10:17)
[2019-01-02] MEDS: TAMSULOSIN HCL 0.4 MG CAP PO SCH (10:17)
[2019-01-02] MEDS: PRENATAL VITAMINS W/ FOLIC ACID TABLET (FP) PO SCH (10:17)
[2019-01-02] MEDS: HYDROCHLOROTHIAZIDE 25 MG TABLET (FP) PO SCH (10:17)
[2019-01-02] MEDS: NICOTINE POLACRILEX 2 MG GUM BUC PRN ×3 (10:55→21:59)
[2019-01-02] MEDS: THIAMINE HCL 100 MG TABLET (FP) PO SCH (21:59)
[2019-01-02] MEDS: BISMUTH SUBSALICYLATE 524 MG/30 ML UD PO PRN (22:23)
[2019-01-03] MEDS ORDERED: METHADONE HCL 5 MG TABLET (FOR DETOX USE ONLY) PO ONE ×2 (06:00→10:30)
[2019-01-03] MEDS: clonazePAM 0.5 MG TABLET PO PRN ×2 (06:29→17:17)
[2019-01-03] MEDS: BISMUTH SUBSALICYLATE 524 MG/30 ML UD PO PRN (06:30)
[2019-01-03] MEDS: NICOTINE POLACRILEX 2 MG GUM BUC PRN ×2 (06:30→20:25)
[2019-01-03] MEDS: IBUPROFEN 400 MG TABLET (FP) PO PRN ×2 (07:06→16:29)
[2019-01-03] MEDS: PRENATAL VITAMINS W/ FOLIC ACID TABLET (FP) PO SCH (10:15)
[2019-01-03] MEDS: TAMSULOSIN HCL 0.4 MG CAP PO SCH (10:15)
[2019-01-03] MEDS: ASPIRIN 81 MG CHEWABLE TABLETS PO SCH (10:15)
[2019-01-03] MEDS: NICOTINE 21 MG/24 HOURS TOPICAL PATCH TD SCH (10:15)
[2019-01-03] MEDS: HYDROCHLOROTHIAZIDE 25 MG TABLET (FP) PO SCH (10:15)
[2019-01-03] MEDS: METHOCARBAMOL 500 MG TABLET PO PRN (11:11)
[2019-01-03] MEDS: hydrOXYzine PAMOATE 25 MG CAPSULE (FP) PO PRN ×2 (11:11→17:17)
--- NOTE | 2019-01-03 13:04 | PN ---
BHS COWS - Scale Resting Pulse: 1= [place] 81-100 Sweatin= Chills/Flushing Restless Observation: 3= Extraneous Movement Pupil Size: 0= Normal to Room Light Bone or Joint Aches: 1= Mild Discomfort Runny Nose/ Eye Tearin= None GI Upset > 30mins: 1= Stomach Cramp Tremor Observation of Outstretched Hands: 2= Slight Tremor Visible Yawning Observation: 0= None Anxiety or Irritability: 1=Feels Anxious/Irritable Goose Flesh Skin: 0=Smooth Skin COWS Score: 10 BHS Progress Note (SOAP) Subjective: Legs and back pain, headache, sweating, tremor, feels horrible. Patient requesting extension of detox protocol as his symptoms are increased. He would prefer to go to [facility] rehab tomorrow after continuing detox today. Objective: 01/03/19 13:01 Last Vital Signs Temp Pulse Resp BP Pulse Ox 98.4 F 86 18 131/77 01/03/19 09:13 01/03/19 09:13 01/03/19 09:13 01/03/19 09:13 Laboratory Tests 01/01/19 01/01/19 01/01/19 07:30 07:30 07:30 WBC 3.9 L RBC 3.78 L Hgb 11.7 Hct 34.9 L MCV 92.2 MCH 31.0 MCHC 33.6 RDW 15.1 Plt Count 178 MPV 9.2 Sodium 140 Potassium 4.4 Chloride 107 Carbon Dioxide 29 Anion Gap 5 L BUN 14.6 Creatinine 0.8 Est GFR (CKD-EPI)AfAm 116.56 Est GFR (CKD-EPI)NonAf 100.57 Random Glucose 88 Calcium 8.9 Total Bilirubin 0.4 AST 67 H ALT 21 Alkaline Phosphatase 69 Total Protein 6.6 Albumin 3.2 L RPR Titer Nonreactive HIV 1&2 Ag/Ab, 4th Gen HIV 1&2 Antibody Screen HIV P24 Antigen 01/01/19 01/01/19 07:30 10:00 WBC RBC Hgb Hct MCV MCH MCHC RDW Plt Count MPV Sodium Potassium Chloride Carbon Dioxide Anion Gap BUN Creatinine Est GFR (CKD-EPI)AfAm Est GFR (CKD-EPI)NonAf Random Glucose Calcium Total Bilirubin AST ALT Alkaline Phosphatase Total Protein Albumin RPR Titer HIV 1&2 Ag/Ab, 4th Gen Non reactive HIV 1&2 Antibody Screen Cancelled HIV P24 Antigen Cancelled Labs reviewed Assessment: 01/03/19 13:02 Withdrawal sxs Plan: Continue detox Encouraged PO water intake Methadone 5mg PO x 1 dose for total of 10mg today then 5mg PO x 1 dose tomorrow due to increased withdrawal sxs Patient for admission to [facility] rehab tomorrow (discharge for today canceled due to increased withdrawal sxs).
[2019-01-03] MEDS: THIAMINE HCL 100 MG TABLET (FP) PO SCH (22:33)
[2019-01-04] MEDS: clonazePAM 0.5 MG TABLET PO PRN (05:43)
[2019-01-04] MEDS: ACETAMINOPHEN 325 MG TABLET (FP) PO PRN (05:43)
[2019-01-04] MEDS: BISMUTH SUBSALICYLATE 524 MG/30 ML UD PO PRN (05:46)
[2019-01-04] MEDS ORDERED: METHADONE HCL 5 MG TABLET (FOR DETOX USE ONLY) PO ONE (06:00)
[2019-01-04] MEDS: NICOTINE POLACRILEX 2 MG GUM BUC PRN ×2 (06:13→10:16)
--- NOTE | 2019-01-04 09:04 | DS ---
[facility] Detox Discharge Summary Admission Date: 12/31/18 Discharge Date: 01/04/19 - History Present History: Opioid Dependence Pertinent Past History: pt was admitted in withdrawals Laboratory Tests 01/01/19 01/01/19 01/01/19 07:30 07:30 07:30 WBC 3.9 L RBC 3.78 L Hgb 11.7 Hct 34.9 L MCV 92.2 MCH 31.0 MCHC 33.6 RDW 15.1 Plt Count 178 MPV 9.2 Sodium 140 Potassium 4.4 Chloride 107 Carbon Dioxide 29 Anion Gap 5 L BUN 14.6 Creatinine 0.8 Est GFR (CKD-EPI)AfAm 116.56 Est GFR (CKD-EPI)NonAf 100.57 Random Glucose 88 Calcium 8.9 Total Bilirubin 0.4 AST 67 H ALT 21 Alkaline Phosphatase 69 Total Protein 6.6 Albumin 3.2 L RPR Titer Nonreactive HIV 1&2 Ag/Ab, 4th Gen HIV 1&2 Antibody Screen HIV P24 Antigen 01/01/19 01/01/19 07:30 10:00 WBC RBC Hgb Hct MCV MCH MCHC RDW Plt Count MPV Sodium Potassium Chloride Carbon Dioxide Anion Gap BUN Creatinine Est GFR (CKD-EPI)AfAm Est GFR (CKD-EPI)NonAf Random Glucose Calcium Total Bilirubin AST ALT Alkaline Phosphatase Total Protein Albumin RPR Titer HIV 1&2 Ag/Ab, 4th Gen Non reactive HIV 1&2 Antibody Screen Cancelled HIV P24 Antigen Cancelled today he is aaox3 ambulating no s/s of withdrawals - Physical Exam Results Vital Signs: Vital Signs Temperature 97.9 F 01/04/19 07:43 Pulse Rate 75 01/04/19 07:43 Respiratory Rate 18 01/04/19 07:43 Blood Pressure 129/76 01/04/19 07:43 O2 Sat by Pulse Oximetry (%) Pertinent Admission Physical Exam Findings: pt arrived in withdrawals Laboratory Tests 01/01/19 01/01/19 01/01/19 07:30 07:30 07:30 WBC 3.9 L RBC 3.78 L Hgb 11.7 Hct 34.9 L MCV 92.2 MCH 31.0 MCHC 33.6 RDW 15.1 Plt Count 178 MPV 9.2 Sodium 140 Potassium 4.4 Chloride 107 Carbon Dioxide 29 Anion Gap 5 L BUN 14.6 Creatinine 0.8 Est GFR (CKD-EPI)AfAm 116.56 Est GFR (CKD-EPI)NonAf 100.57 Random Glucose 88 Calcium 8.9 Total Bilirubin 0.4 AST 67 H ALT 21 Alkaline Phosphatase 69 Total Protein 6.6 Albumin 3.2 L RPR Titer Nonreactive HIV 1&2 Ag/Ab, 4th Gen HIV 1&2 Antibody Screen HIV P24 Antigen 01/01/19 01/01/19 07:30 10:00 WBC RBC Hgb Hct MCV MCH MCHC RDW Plt Count MPV Sodium Potassium Chloride Carbon Dioxide Anion Gap BUN Creatinine Est GFR (CKD-EPI)AfAm Est GFR (CKD-EPI)NonAf Random Glucose Calcium Total Bilirubin AST ALT Alkaline Phosphatase Total Protein Albumin RPR Titer HIV 1&2 Ag/Ab, 4th Gen Non reactive HIV 1&2 Antibody Screen Cancelled HIV P24 Antigen Cancelled today pt is aaox3 ambulating no acute distress no - Treatment Hospital Course: Detox Protocol Followed, Detoxed Safely, Responded well, Discharged Condition Good, Rehab Referral Accepted Patient has Accepted a Rehab Referral to: referred to [facility] rehab - Medication Discharge Medications: Ambulatory Orders Tamsulosin HCl [Flomax -] 0.8 mg PO DAILY 12/02/17 Aspirin [ASA -] 81 mg PO DAILY #30 tab.chew 09/21/18 Hydrochlorothiazide [Hctz -] 25 mg PO DAILY #30 tablet 09/21/18 Alprazolam [Xanax] 2 mg PO BID 12/31/18 - Diagnosis (1) Opioid dependence with withdrawal Current Visit: Yes Status: Chronic (2) Insomnia Current Visit: No Status: Acute (3) Low back pain Current Visit: Yes Status: Chronic Qualifiers: Chronicity: chronic Back pain laterality: unspecified Sciatica presence: unspecified whether sciatica present Qualified Code(s): M54.5 - Low back pain ; G89.29 - Other chronic pain (4) Essential hypertension Current Visit: Yes Status: Chronic (5) GERD (gastroesophageal reflux disease) Current Visit: Yes Status: Chronic Qualifiers: Esophagitis presence: without esophagitis Qualified Code(s): K21.9 - Gastro -esophageal reflux disease without esophagitis - AMA Did Patient Leave Against Medical Advice: No
[2019-01-04] MEDS: TAMSULOSIN HCL 0.4 MG CAP PO SCH (10:12)
[2019-01-04] MEDS: NICOTINE 21 MG/24 HOURS TOPICAL PATCH TD SCH (10:12)
[2019-01-04] MEDS: PRENATAL VITAMINS W/ FOLIC ACID TABLET (FP) PO SCH (10:12)
[2019-01-04] MEDS: ASPIRIN 81 MG CHEWABLE TABLETS PO SCH (10:13)
[2019-01-04] MEDS: HYDROCHLOROTHIAZIDE 25 MG TABLET (FP) PO SCH (10:13)
[2019-01-04] MEDS: hydrOXYzine PAMOATE 25 MG CAPSULE (FP) PO PRN (10:14)
[2019-01-04 10:50] VITALS: BP 144/90; PULSE 76; TEMP 98.1
== END 2019-01-04 11:00 | disposition other institution (70) | DRG 773 ==
LOC: YASAS 15:30 → Y6N 21:13
PROVIDERS: ADMIT Surgery; ATTEND Surgery
PROC: HZ2ZZZZ Detoxification Services for Substance Abuse Treatment (ICD-10-PCS; principal; 2018-12-31)
DX: F11.23 Opioid dependence with withdrawal (principal); F17.210 Nicotine dependence, cigarettes, uncomplicated; I10 Essential (primary) hypertension; G47.00 Insomnia, unspecified; M54.5 Low back pain; G89.29 Other chronic pain; K21.9 Gastro-esophageal reflux disease without esophagitis; N40.0 Benign prostatic hyperplasia without lower urinary tract symptoms; Z88.0 Allergy status to penicillin; Z91.013 Allergy to seafood
CPT/HCPCS: 36415; 80053; 85027; 86593; 87389; J0735

== ENCOUNTER 2019-01-04 10:46 | Inpatient (IN) | payer OTHER ==
[2019-01-04] MEDS ORDERED: MAG HYDROX/AL HYDROX/SIMETH 30 ML UNIT-DOSE CUP PO PRN (13:03)
[2019-01-04] MEDS ORDERED: MENTHOL/PHENOL 1 EACH UD MM PRN (13:03)
[2019-01-04] MEDS ORDERED: MAGNESIUM CITRATE 300 ML BOTTLE PO PRN (13:03)
[2019-01-04] MEDS ORDERED: P-EPHED 60MG/TRIPROLIDI 2.5MG TABLET PO PRN (13:03)
[2019-01-04] MEDS ORDERED: MAGNESIUM HYDROX 2400MG/30ML ORAL SUSPENSION 30 ML CUP PO PRN (13:03)
[2019-01-04] MEDS ORDERED: guaiFENesin 200 MG/10 ML 10 ML UNIT-DOSE CUPS PO PRN (13:03)
[2019-01-04] MEDS ORDERED: LOPERAMIDE HCL 2 MG CAPSULE PO PRN (13:03)
--- NOTE | 2019-01-04 13:03 | HP ---
[facility] Rehab Assess/Revision - Admission History Admitted to Rehab from: [facility] - Findings Detox History & Physical reviewed: Yes Concur with findings: Yes Inpatient Rehab Admission - Rehab Decision to Admit Inpatient rehab admission?: Yes - Initial Determination Are CD services needed?: Yes Free of communicable disease: Yes Not in need of hospitalization: Yes - Rehab Admission Criteria Previous failed treatment: Yes Poor recovery environment: Yes Comorbidities: Yes Lacks judgement: Yes Patient is meeting Inpatient Rehab admission criteria:: Yes
[2019-01-04] MEDS: hydrOXYzine PAMOATE 50 MG CAPSULE (FP) PO PRN (16:36)
[2019-01-04] MEDS: IBUPROFEN 400 MG TABLET (FP) PO PRN (16:36)
[2019-01-04] MEDS: NICOTINE POLACRILEX 4 MG GUM BUC PRN ×2 (16:37→21:49)
[2019-01-04] MEDS: THIAMINE HCL 100 MG TABLET (FP) PO SCH (21:47)
[2019-01-04] MEDS: MELATONIN 5 MG TABLETS PO PRN (21:48)
[2019-01-05] MEDS: IBUPROFEN 400 MG TABLET (FP) PO PRN (06:30)
[2019-01-05] MEDS: NICOTINE POLACRILEX 4 MG GUM BUC PRN ×4 (06:31→21:03)
[2019-01-05] MEDS: TAMSULOSIN HCL 0.4 MG CAP PO SCH (07:44)
[2019-01-05] MEDS: HYDROCHLOROTHIAZIDE 25 MG TABLET (FP) PO SCH (09:59)
[2019-01-05] MEDS: hydrOXYzine PAMOATE 50 MG CAPSULE (FP) PO PRN ×2 (09:59→21:45)
[2019-01-05] MEDS: ASPIRIN 81 MG CHEWABLE TABLETS PO SCH (09:59)
[2019-01-05] MEDS: NICOTINE 21 MG/24 HOURS TOPICAL PATCH TD SCH (10:00)
[2019-01-05] MEDS: PRENATAL VITAMINS W/ FOLIC ACID TABLET (FP) PO SCH (10:00)
[2019-01-05] MEDS ORDERED: PT OWN MED DRAWER 7, Y5N ONE (10:29)
[2019-01-05] MEDS ORDERED: cloNIDine HCL 0.1 MG TABLET PO ONE (10:47)
[2019-01-05] MEDS: CYCLOBENZAPRINE HCL 10 MG TABLET (FP) PO SCH ×2 (14:54→21:02)
[2019-01-05] MEDS: THIAMINE HCL 100 MG TABLET (FP) PO SCH (21:02)
[2019-01-06] MEDS: CYCLOBENZAPRINE HCL 10 MG TABLET (FP) PO SCH ×3 (06:24→21:47)
[2019-01-06] MEDS: NICOTINE POLACRILEX 4 MG GUM BUC PRN ×5 (06:24→21:48)
[2019-01-06] MEDS: TAMSULOSIN HCL 0.4 MG CAP PO SCH (07:38)
[2019-01-06] MEDS: NICOTINE 21 MG/24 HOURS TOPICAL PATCH TD SCH (10:21)
[2019-01-06] MEDS: PRENATAL VITAMINS W/ FOLIC ACID TABLET (FP) PO SCH (10:21)
[2019-01-06] MEDS: cloNIDine HCL 0.1 MG TABLET PO SCH ×2 (10:21→21:47)
[2019-01-06] MEDS: ASPIRIN 81 MG CHEWABLE TABLETS PO SCH (10:21)
[2019-01-06] MEDS: HYDROCHLOROTHIAZIDE 25 MG TABLET (FP) PO SCH (10:21)
--- NOTE | 2019-01-06 10:50 | PN ---
BHS COWS - Scale Resting Pulse: 2= [place] 101-120 Sweatin= Chills/Flushing Restless Observation: 1= Difficult to Sit Still Pupil Size: 0= Normal to Room Light Bone or Joint Aches: 4=Acute Joint/Muscle Pain Runny Nose/ Eye Tearin= Runny Nose/Eyes GI Upset > 30mins: 2= Nausea/Diarrhea Tremor Observation of Outstretched Hands: 4= Gross Tremor/Twitching Yawning Observation: 0= None Anxiety or Irritability: 2=Irritable/Anxious Goose Flesh Skin: 0=Smooth Skin COWS Score: 18 BHS Progress Note (SOAP) Subjective: Patient requesting suboxone treatment. Has been on suboxone July 2018 to October 2018, then relapsed on heroin. Patient Name: Thong Adam Date: 1965 Address: [address] [place] [address] Sex: Male 12/22/2018 12/22/2018 alprazolam 2 mg tablet 60 30 Mercer, Nik Monk MD 11/20/2018 11/20/2018 alprazolam 2 mg tablet 60 30 Mercer, Nik Monk MD 10/23/2018 10/23/2018 alprazolam 2 mg tablet 60 30 Mercer, Nik Monk MD 10/15/2018 10/15/2018 clonazepam 2 mg tablet 30 15 Mercer, Nik Monk MD 09/24/2018 09/24/2018 clonazepam 2 mg tablet 30 15 Mercer, Nik Monk MD 08/25/2018 08/25/2018 clonazepam 2 mg tablet 60 30 Mercer, Nik Monk MD 07/24/2018 07/24/2018 clonazepam 2 mg tablet 60 30 Mercer, Nik Monk MD 06/26/2018 06/26/2018 clonazepam 2 mg tablet 60 30 Mercer, Nik Monk MD 06/08/2018 06/08/2018 suboxone 8 mg-2 mg sl film 60 30 Cristian Coulter 05/26/2018 05/26/2018 clonazepam 2 mg tablet 60 30 Mercer, Nik Monk MD 04/23/2018 04/23/2018 clonazepam 2 mg tablet 60 30 Mercer, Nik Monk MD 04/06/2018 04/16/2018 suboxone 8 mg-2 mg sl film 60 30 Cristian Coulter 03/23/2018 03/24/2018 suboxone 8 mg-2 mg sl film 50 25 Cristian Coulter 03/24/2018 03/24/2018 clonazepam 2 mg tablet 60 30 Nik Mercer MD 03/20/2018 03/20/2018 suboxone 8 mg-2 mg sl film 7 7 Cristian Coulter 02/20/2018 02/20/2018 clonazepam 2 mg tablet 60 30 Nik Mercer MD Patient Name: Thong Adam Date: 1965 Address: [address] [place] [address] Sex: Male 10/09/2018 10/09/2018 buprenorphine-naloxone 8-2 mg sl film 7 7 Cherelle Roberson NP Patient Name: Thong Adam Date: 1965 Address: [address] [place] [address] Sex: Male 09/21/2018 09/22/2018 buprenorphine-naloxone 8-2 mg sl film 32 16 Janine Smith NP 08/19/2018 08/19/2018 suboxone 8 mg-2 mg sl film 24 8 Derekvictor hugo Watts Lilli Patient Name: Thong Adam Date: 1965 Address: [address] [place] [address] Sex: Male 08/14/2018 08/17/2018 buprenorphine-naloxone 8-2 mg sl tablet 12 4 Cosme Bardales MD Patient Name: Thong Adam Date: 1965 Address: [address] [place] [address] Sex: Male 07/14/2018 07/20/2018 buprenorphine-naloxone 4-1 mg sl film 20 10 Peewee Cam MD Patient Name: Thong Adam Date: 1965 Address: [address] [place] [address] Sex: Male 03/02/2018 03/02/2018 suboxone 8 mg-2 mg sl film 30 15 Holden, Amarilis L 02/16/2018 02/16/2018 suboxone 8 mg-2 mg sl film 30 30 Holden, Amarilis L 02/02/2018 02/02/2018 suboxone 8 mg-2 mg sl film 30 15 Holden, Amarilis L 01/19/2018 01/20/2018 suboxone 8 mg-2 mg sl film 15 15 Holden, Amarilis L Objective: General: Irritable Heart: S1 s2, tachycardia Lungs: clear Abd: soft, non-tender, non-distended, +BS neuro: 2-12 intact, no neurological deficits. 01/06/19 10:52 01/06/19 10:52 01/06/19 10:57 Assessment: withdrawal from heroin 01/06/19 10:52 Plan: Will start suboxone 4mg BID, will titrate as needed. Discussed with patient the need for referral for suboxone treatment after discharge. Requested that he speak to his counselor. Will inform counselor of same. Patient states he has a program he intends to return to upon discharge.
[2019-01-06] MEDS ORDERED: BUPRENORPHINE/NALOXONE 4 MG/1 MG FILM PACKET SL SCH (11:00)
[2019-01-06] MEDS: IBUPROFEN 400 MG TABLET (FP) PO PRN (11:31)
[2019-01-06] MEDS: BUPRENORPHINE/NALOXONE 4 MG/1 MG FILM PACKET SL SCH (18:09)
[2019-01-06] MEDS: THIAMINE HCL 100 MG TABLET (FP) PO SCH (21:47)
[2019-01-07] MEDS: CYCLOBENZAPRINE HCL 10 MG TABLET (FP) PO SCH ×3 (06:23→21:47)
[2019-01-07] MEDS: TAMSULOSIN HCL 0.4 MG CAP PO SCH (08:16)
[2019-01-07] MEDS: ASPIRIN 81 MG CHEWABLE TABLETS PO SCH (09:32)
[2019-01-07] MEDS: HYDROCHLOROTHIAZIDE 25 MG TABLET (FP) PO SCH (09:32)
[2019-01-07] MEDS: cloNIDine HCL 0.1 MG TABLET PO SCH ×2 (09:32→21:48)
[2019-01-07] MEDS: BUPRENORPHINE/NALOXONE 4 MG/1 MG FILM PACKET SL SCH ×2 (09:33→17:09)
[2019-01-07] MEDS: NICOTINE 21 MG/24 HOURS TOPICAL PATCH TD SCH (09:33)
[2019-01-07] MEDS: PRENATAL VITAMINS W/ FOLIC ACID TABLET (FP) PO SCH (09:33)
[2019-01-07] MEDS: NICOTINE POLACRILEX 4 MG GUM BUC PRN ×3 (09:33→21:49)
[2019-01-07] MEDS: IBUPROFEN 400 MG TABLET (FP) PO PRN (10:23)
[2019-01-07] MEDS: MELATONIN 5 MG TABLETS PO PRN (21:47)
[2019-01-07] MEDS: THIAMINE HCL 100 MG TABLET (FP) PO SCH (21:47)
[2019-01-08] MEDS: CYCLOBENZAPRINE HCL 10 MG TABLET (FP) PO SCH ×3 (06:18→21:50)
[2019-01-08] MEDS: TAMSULOSIN HCL 0.4 MG CAP PO SCH (07:38)
[2019-01-08] MEDS: IBUPROFEN 400 MG TABLET (FP) PO PRN (08:37)
[2019-01-08] MEDS: PRENATAL VITAMINS W/ FOLIC ACID TABLET (FP) PO SCH (09:15)
[2019-01-08] MEDS: cloNIDine HCL 0.1 MG TABLET PO SCH ×2 (09:15→21:50)
[2019-01-08] MEDS: NICOTINE 21 MG/24 HOURS TOPICAL PATCH TD SCH (09:15)
[2019-01-08] MEDS: ASPIRIN 81 MG CHEWABLE TABLETS PO SCH (09:16)
[2019-01-08] MEDS: BUPRENORPHINE/NALOXONE 4 MG/1 MG FILM PACKET SL SCH ×2 (09:16→18:13)
[2019-01-08] MEDS: HYDROCHLOROTHIAZIDE 25 MG TABLET (FP) PO SCH (09:16)
[2019-01-08] MEDS: NICOTINE POLACRILEX 4 MG GUM BUC PRN ×3 (14:23→21:51)
--- NOTE | 2019-01-08 14:40 | PN ---
[facility] Progress Note Note: Patient c/o sciatica and neuropathic pain. States he was treated with Gabapentin in past. Patient states symptoms chronic. Vital Signs Temperature 98 F 01/08/19 08:50 Pulse Rate 105 H 01/08/19 08:50 Respiratory Rate 18 01/08/19 08:50 Blood Pressure 115/73 01/08/19 08:50 O2 Sat by Pulse Oximetry (%) alert and oriented x 3 skin warm and dry amb ad blaine full rom of ext a/p neuropathic pain will start gabapentin 100mg tid monitor clinically
[2019-01-08] MEDS: THIAMINE HCL 100 MG TABLET (FP) PO SCH (21:50)
[2019-01-08] MEDS: GABAPENTIN 100 MG CAPSULE (FP) PO SCH (21:51)
[2019-01-09] MEDS: NICOTINE POLACRILEX 4 MG GUM BUC PRN ×5 (06:23→21:05)
[2019-01-09] MEDS: CYCLOBENZAPRINE HCL 10 MG TABLET (FP) PO SCH ×3 (06:24→21:05)
[2019-01-09] MEDS: GABAPENTIN 100 MG CAPSULE (FP) PO SCH ×3 (06:24→21:05)
[2019-01-09] MEDS: TAMSULOSIN HCL 0.4 MG CAP PO SCH (07:43)
[2019-01-09] MEDS: BUPRENORPHINE/NALOXONE 4 MG/1 MG FILM PACKET SL SCH ×2 (10:10→18:04)
[2019-01-09] MEDS: ASPIRIN 81 MG CHEWABLE TABLETS PO SCH (10:11)
[2019-01-09] MEDS: cloNIDine HCL 0.1 MG TABLET PO SCH ×2 (10:11→21:05)
[2019-01-09] MEDS: HYDROCHLOROTHIAZIDE 25 MG TABLET (FP) PO SCH (10:11)
[2019-01-09] MEDS: NICOTINE 21 MG/24 HOURS TOPICAL PATCH TD SCH (10:11)
[2019-01-09] MEDS: PRENATAL VITAMINS W/ FOLIC ACID TABLET (FP) PO SCH (10:11)
[2019-01-09] MEDS: THIAMINE HCL 100 MG TABLET (FP) PO SCH (21:05)
[2019-01-10] MEDS: GABAPENTIN 100 MG CAPSULE (FP) PO SCH ×3 (06:23→21:41)
[2019-01-10] MEDS: CYCLOBENZAPRINE HCL 10 MG TABLET (FP) PO SCH ×3 (06:23→21:41)
[2019-01-10] MEDS: NICOTINE POLACRILEX 4 MG GUM BUC PRN ×5 (06:23→21:45)
[2019-01-10] MEDS: TAMSULOSIN HCL 0.4 MG CAP PO SCH (07:52)
[2019-01-10] MEDS: cloNIDine HCL 0.1 MG TABLET PO SCH ×2 (09:13→21:41)
[2019-01-10] MEDS: PRENATAL VITAMINS W/ FOLIC ACID TABLET (FP) PO SCH (09:13)
[2019-01-10] MEDS: HYDROCHLOROTHIAZIDE 25 MG TABLET (FP) PO SCH (09:13)
[2019-01-10] MEDS: BUPRENORPHINE/NALOXONE 4 MG/1 MG FILM PACKET SL SCH ×2 (09:13→17:55)
[2019-01-10] MEDS: NICOTINE 21 MG/24 HOURS TOPICAL PATCH TD SCH (09:13)
[2019-01-10] MEDS: ASPIRIN 81 MG CHEWABLE TABLETS PO SCH (09:13)
[2019-01-10] MEDS: IBUPROFEN 400 MG TABLET (FP) PO PRN (21:42)
[2019-01-10] MEDS: THIAMINE HCL 100 MG TABLET (FP) PO SCH (21:43)
[2019-01-11] MEDS: IBUPROFEN 400 MG TABLET (FP) PO PRN ×2 (06:10→17:58)
[2019-01-11] MEDS: CYCLOBENZAPRINE HCL 10 MG TABLET (FP) PO SCH ×3 (06:10→22:01)
[2019-01-11] MEDS: GABAPENTIN 100 MG CAPSULE (FP) PO SCH ×3 (06:10→22:01)
[2019-01-11] MEDS: TAMSULOSIN HCL 0.4 MG CAP PO SCH (07:38)
[2019-01-11] MEDS: ASPIRIN 81 MG CHEWABLE TABLETS PO SCH (09:13)
[2019-01-11] MEDS: HYDROCHLOROTHIAZIDE 25 MG TABLET (FP) PO SCH (09:13)
[2019-01-11] MEDS: PRENATAL VITAMINS W/ FOLIC ACID TABLET (FP) PO SCH (09:13)
[2019-01-11] MEDS: cloNIDine HCL 0.1 MG TABLET PO SCH ×2 (09:13→22:01)
[2019-01-11] MEDS: NICOTINE 21 MG/24 HOURS TOPICAL PATCH TD SCH (09:13)
[2019-01-11] MEDS: ACETAMINOPHEN 325 MG TABLET (FP) PO PRN (09:14)
[2019-01-11] MEDS: BUPRENORPHINE/NALOXONE 4 MG/1 MG FILM PACKET SL SCH ×2 (10:29→17:11)
[2019-01-11] MEDS: NICOTINE POLACRILEX 4 MG GUM BUC PRN ×2 (13:57→17:11)
[2019-01-11] MEDS: THIAMINE HCL 100 MG TABLET (FP) PO SCH (22:00)
[2019-01-12] MEDS: GABAPENTIN 100 MG CAPSULE (FP) PO SCH ×3 (06:30→21:36)
[2019-01-12] MEDS: NICOTINE POLACRILEX 4 MG GUM BUC PRN ×4 (06:30→21:38)
[2019-01-12] MEDS: CYCLOBENZAPRINE HCL 10 MG TABLET (FP) PO SCH ×3 (06:30→21:36)
[2019-01-12] MEDS: IBUPROFEN 400 MG TABLET (FP) PO PRN ×3 (06:30→21:37)
[2019-01-12] MEDS: TAMSULOSIN HCL 0.4 MG CAP PO SCH (07:42)
[2019-01-12] MEDS: NICOTINE 21 MG/24 HOURS TOPICAL PATCH TD SCH (09:33)
[2019-01-12] MEDS: PRENATAL VITAMINS W/ FOLIC ACID TABLET (FP) PO SCH (09:34)
[2019-01-12] MEDS: HYDROCHLOROTHIAZIDE 25 MG TABLET (FP) PO SCH (09:34)
[2019-01-12] MEDS: ASPIRIN 81 MG CHEWABLE TABLETS PO SCH (09:34)
[2019-01-12] MEDS: cloNIDine HCL 0.1 MG TABLET PO SCH ×2 (09:34→21:36)
[2019-01-12] MEDS: BUPRENORPHINE/NALOXONE 4 MG/1 MG FILM PACKET SL SCH (18:02)
[2019-01-12] MEDS: THIAMINE HCL 100 MG TABLET (FP) PO SCH (21:36)
[2019-01-13] MEDS: IBUPROFEN 400 MG TABLET (FP) PO PRN ×2 (06:20→18:09)
[2019-01-13] MEDS: NICOTINE POLACRILEX 4 MG GUM BUC PRN ×4 (06:20→21:02)
[2019-01-13] MEDS: GABAPENTIN 100 MG CAPSULE (FP) PO SCH ×3 (06:21→21:01)
[2019-01-13] MEDS: CYCLOBENZAPRINE HCL 10 MG TABLET (FP) PO SCH ×3 (06:21→21:01)
[2019-01-13] MEDS: TAMSULOSIN HCL 0.4 MG CAP PO SCH (07:32)
[2019-01-13] MEDS: ACETAMINOPHEN 325 MG TABLET (FP) PO PRN (09:07)
[2019-01-13] MEDS: PRENATAL VITAMINS W/ FOLIC ACID TABLET (FP) PO SCH (09:55)
[2019-01-13] MEDS: ASPIRIN 81 MG CHEWABLE TABLETS PO SCH (09:55)
[2019-01-13] MEDS: NICOTINE 21 MG/24 HOURS TOPICAL PATCH TD SCH (09:55)
[2019-01-13] MEDS: cloNIDine HCL 0.1 MG TABLET PO SCH ×2 (09:55→21:01)
[2019-01-13] MEDS: HYDROCHLOROTHIAZIDE 25 MG TABLET (FP) PO SCH (09:55)
[2019-01-13] MEDS: BUPRENORPHINE/NALOXONE 4 MG/1 MG FILM PACKET SL SCH ×2 (09:55→18:08)
[2019-01-13] MEDS: THIAMINE HCL 100 MG TABLET (FP) PO SCH (21:01)
[2019-01-14] MEDS: GABAPENTIN 100 MG CAPSULE (FP) PO SCH ×3 (06:15→21:29)
[2019-01-14] MEDS: NICOTINE POLACRILEX 4 MG GUM BUC PRN ×5 (06:15→21:30)
[2019-01-14] MEDS: CYCLOBENZAPRINE HCL 10 MG TABLET (FP) PO SCH ×3 (06:15→21:29)
[2019-01-14] MEDS: TAMSULOSIN HCL 0.4 MG CAP PO SCH (08:02)
[2019-01-14] MEDS: PRENATAL VITAMINS W/ FOLIC ACID TABLET (FP) PO SCH (10:07)
[2019-01-14] MEDS: BUPRENORPHINE/NALOXONE 4 MG/1 MG FILM PACKET SL SCH ×2 (10:07→18:05)
[2019-01-14] MEDS: cloNIDine HCL 0.1 MG TABLET PO SCH ×2 (10:08→21:29)
[2019-01-14] MEDS: HYDROCHLOROTHIAZIDE 25 MG TABLET (FP) PO SCH (10:08)
[2019-01-14] MEDS: IBUPROFEN 400 MG TABLET (FP) PO PRN ×2 (10:08→21:29)
[2019-01-14] MEDS: NICOTINE 21 MG/24 HOURS TOPICAL PATCH TD SCH (10:08)
[2019-01-14] MEDS: ASPIRIN 81 MG CHEWABLE TABLETS PO SCH (10:08)
[2019-01-14] MEDS: ACETAMINOPHEN 325 MG TABLET (FP) PO PRN (18:05)
[2019-01-14] MEDS: THIAMINE HCL 100 MG TABLET (FP) PO SCH (21:29)
[2019-01-15] MEDS: GABAPENTIN 100 MG CAPSULE (FP) PO SCH ×3 (06:08→21:02)
[2019-01-15] MEDS: CYCLOBENZAPRINE HCL 10 MG TABLET (FP) PO SCH ×3 (06:08→21:02)
[2019-01-15] MEDS: NICOTINE POLACRILEX 4 MG GUM BUC PRN ×4 (06:09→21:03)
[2019-01-15] MEDS: TAMSULOSIN HCL 0.4 MG CAP PO SCH (07:34)
[2019-01-15] MEDS: BUPRENORPHINE/NALOXONE 4 MG/1 MG FILM PACKET SL SCH ×2 (10:18→18:01)
[2019-01-15] MEDS: HYDROCHLOROTHIAZIDE 25 MG TABLET (FP) PO SCH (10:18)
[2019-01-15] MEDS: NICOTINE 21 MG/24 HOURS TOPICAL PATCH TD SCH (10:18)
[2019-01-15] MEDS: PRENATAL VITAMINS W/ FOLIC ACID TABLET (FP) PO SCH (10:18)
[2019-01-15] MEDS: ASPIRIN 81 MG CHEWABLE TABLETS PO SCH (10:18)
[2019-01-15] MEDS: cloNIDine HCL 0.1 MG TABLET PO SCH ×2 (10:18→21:02)
[2019-01-15] MEDS: IBUPROFEN 400 MG TABLET (FP) PO PRN (14:09)
[2019-01-15] MEDS: THIAMINE HCL 100 MG TABLET (FP) PO SCH (21:02)
[2019-01-16] MEDS: GABAPENTIN 100 MG CAPSULE (FP) PO SCH ×3 (06:07→22:03)
[2019-01-16] MEDS: IBUPROFEN 400 MG TABLET (FP) PO PRN ×2 (06:07→18:43)
[2019-01-16] MEDS: CYCLOBENZAPRINE HCL 10 MG TABLET (FP) PO SCH ×3 (06:07→22:03)
[2019-01-16] MEDS: NICOTINE POLACRILEX 4 MG GUM BUC PRN ×4 (06:07→22:04)
[2019-01-16] MEDS: TAMSULOSIN HCL 0.4 MG CAP PO SCH (07:32)
[2019-01-16] MEDS ORDERED: PT OWN MED DRAWER 7, Y5N ONE (10:33)
[2019-01-16] MEDS: ASPIRIN 81 MG CHEWABLE TABLETS PO SCH (10:37)
[2019-01-16] MEDS: cloNIDine HCL 0.1 MG TABLET PO SCH ×2 (10:37→22:03)
[2019-01-16] MEDS: BUPRENORPHINE/NALOXONE 4 MG/1 MG FILM PACKET SL SCH ×2 (10:38→18:44)
[2019-01-16] MEDS: HYDROCHLOROTHIAZIDE 25 MG TABLET (FP) PO SCH (10:38)
[2019-01-16] MEDS: NICOTINE 21 MG/24 HOURS TOPICAL PATCH TD SCH (10:38)
[2019-01-16] MEDS: PRENATAL VITAMINS W/ FOLIC ACID TABLET (FP) PO SCH (10:38)
[2019-01-16] MEDS: THIAMINE HCL 100 MG TABLET (FP) PO SCH (22:02)
[2019-01-16] MEDS: MELATONIN 5 MG TABLETS PO PRN (22:03)
[2019-01-17] MEDS: IBUPROFEN 400 MG TABLET (FP) PO PRN (06:25)
[2019-01-17] MEDS: CYCLOBENZAPRINE HCL 10 MG TABLET (FP) PO SCH ×3 (06:25→21:02)
[2019-01-17] MEDS: GABAPENTIN 100 MG CAPSULE (FP) PO SCH ×3 (06:26→21:02)
[2019-01-17] MEDS: TAMSULOSIN HCL 0.4 MG CAP PO SCH (08:46)
[2019-01-17] MEDS: cloNIDine HCL 0.1 MG TABLET PO SCH ×2 (09:46→21:02)
[2019-01-17] MEDS: BUPRENORPHINE/NALOXONE 4 MG/1 MG FILM PACKET SL SCH ×2 (09:48→18:47)
[2019-01-17] MEDS: NICOTINE 21 MG/24 HOURS TOPICAL PATCH TD SCH (09:48)
[2019-01-17] MEDS: HYDROCHLOROTHIAZIDE 25 MG TABLET (FP) PO SCH (09:48)
[2019-01-17] MEDS: ASPIRIN 81 MG CHEWABLE TABLETS PO SCH (09:48)
[2019-01-17] MEDS: NICOTINE POLACRILEX 4 MG GUM BUC PRN ×3 (09:48→21:02)
[2019-01-17] MEDS: PRENATAL VITAMINS W/ FOLIC ACID TABLET (FP) PO SCH (09:48)
[2019-01-17] MEDS: THIAMINE HCL 100 MG TABLET (FP) PO SCH (21:02)
[2019-01-17] MEDS: MELATONIN 5 MG TABLETS PO PRN (21:02)
[2019-01-18] MEDS: GABAPENTIN 100 MG CAPSULE (FP) PO SCH ×3 (06:03→21:18)
[2019-01-18] MEDS: NICOTINE POLACRILEX 4 MG GUM BUC PRN ×5 (06:03→21:19)
[2019-01-18] MEDS: CYCLOBENZAPRINE HCL 10 MG TABLET (FP) PO SCH ×3 (06:03→21:18)
[2019-01-18] MEDS: TAMSULOSIN HCL 0.4 MG CAP PO SCH (07:33)
[2019-01-18] MEDS: ASPIRIN 81 MG CHEWABLE TABLETS PO SCH (10:07)
[2019-01-18] MEDS: cloNIDine HCL 0.1 MG TABLET PO SCH ×2 (10:08→21:18)
[2019-01-18] MEDS: NICOTINE 21 MG/24 HOURS TOPICAL PATCH TD SCH (10:08)
[2019-01-18] MEDS: HYDROCHLOROTHIAZIDE 25 MG TABLET (FP) PO SCH (10:08)
[2019-01-18] MEDS: BUPRENORPHINE/NALOXONE 4 MG/1 MG FILM PACKET SL SCH ×3 (10:09→21:18)
[2019-01-18] MEDS: PRENATAL VITAMINS W/ FOLIC ACID TABLET (FP) PO SCH (10:09)
[2019-01-18] MEDS: THIAMINE HCL 100 MG TABLET (FP) PO SCH (21:18)
[2019-01-19] MEDS: CYCLOBENZAPRINE HCL 10 MG TABLET (FP) PO SCH ×3 (06:07→21:05)
[2019-01-19] MEDS: GABAPENTIN 100 MG CAPSULE (FP) PO SCH ×3 (06:07→21:05)
[2019-01-19] MEDS: TAMSULOSIN HCL 0.4 MG CAP PO SCH (08:14)
[2019-01-19] MEDS: IBUPROFEN 400 MG TABLET (FP) PO PRN ×2 (08:46→22:28)
[2019-01-19] MEDS: cloNIDine HCL 0.1 MG TABLET PO SCH ×2 (10:52→21:05)
[2019-01-19] MEDS: HYDROCHLOROTHIAZIDE 25 MG TABLET (FP) PO SCH (10:52)
[2019-01-19] MEDS: BUPRENORPHINE/NALOXONE 4 MG/1 MG FILM PACKET SL SCH ×2 (10:52→21:07)
[2019-01-19] MEDS: NICOTINE 21 MG/24 HOURS TOPICAL PATCH TD SCH (10:52)
[2019-01-19] MEDS: PRENATAL VITAMINS W/ FOLIC ACID TABLET (FP) PO SCH (10:52)
[2019-01-19] MEDS: ASPIRIN 81 MG CHEWABLE TABLETS PO SCH (10:52)
[2019-01-19] MEDS: ACETAMINOPHEN 325 MG TABLET (FP) PO PRN (10:53)
[2019-01-19] MEDS: NICOTINE POLACRILEX 4 MG GUM BUC PRN ×3 (11:52→21:06)
[2019-01-19] MEDS: THIAMINE HCL 100 MG TABLET (FP) PO SCH (21:05)
[2019-01-20] MEDS: IBUPROFEN 400 MG TABLET (FP) PO PRN (06:30)
[2019-01-20] MEDS: GABAPENTIN 100 MG CAPSULE (FP) PO SCH ×3 (06:30→21:13)
[2019-01-20] MEDS: CYCLOBENZAPRINE HCL 10 MG TABLET (FP) PO SCH ×3 (06:30→21:13)
[2019-01-20] MEDS: NICOTINE POLACRILEX 4 MG GUM BUC PRN ×3 (06:31→21:14)
[2019-01-20] MEDS: TAMSULOSIN HCL 0.4 MG CAP PO SCH (07:32)
[2019-01-20] MEDS: PRENATAL VITAMINS W/ FOLIC ACID TABLET (FP) PO SCH (10:30)
[2019-01-20] MEDS: HYDROCHLOROTHIAZIDE 25 MG TABLET (FP) PO SCH (10:30)
[2019-01-20] MEDS: ASPIRIN 81 MG CHEWABLE TABLETS PO SCH (10:30)
[2019-01-20] MEDS: cloNIDine HCL 0.1 MG TABLET PO SCH ×2 (10:30→21:13)
[2019-01-20] MEDS: NICOTINE 21 MG/24 HOURS TOPICAL PATCH TD SCH (10:30)
[2019-01-20] MEDS: BUPRENORPHINE/NALOXONE 4 MG/1 MG FILM PACKET SL SCH ×2 (10:30→21:13)
--- NOTE | 2019-01-20 10:55 | DS ---
[facility] Rehab Discharge Summary - [facility] Rehab Discharge Summary Admission Date: 01/04/19 Discharge Date: 01/21/19 - History Present History: Opioid dependence Pertinent Past History: pt relapse after d/c from this and other facility x 3 weeks prior to admission here , current daily use 6 bags heroin via inhalation , denies cocaine , cannabis use , denies other illicits or etoh . denies OD . Patient has a hx of Suboxone use as evidence by [facility] [employer]. MTD - reports he bought illicit methadone a few days ago tobacco : 1 ppd xanax - reports taking meds as rx " I need them for work " PMHX : anxiety , htn , BPH PSHx : denies PSych : denies SI / HI SHX : works f/t [employer] , legal - pending court February 2019 . - Discharge Physical Exam Vital Signs: Vital Signs Temperature 97.4 F L 01/20/19 06:39 Pulse Rate 108 H 01/20/19 06:39 Respiratory Rate 16 01/20/19 06:39 Blood Pressure 124/83 01/20/19 06:39 O2 Sat by Pulse Oximetry (%) Pertinent Admission Physical Exam Findings: Physical General: No apparent distress. HEENTM: EOMI, Normocephalic, Respiratory: Lungs Clear, Neck: Supple, Trachea in good position Cardiology: S1, S2 Abdominal: +BS, Non Tender, Soft Musculoskeletal: Gait Steady Full Range of Motion, Neurological: S1 S2 audible, regular. Integumentary: Color consistent throughout trunk and extremities. - Treatment Discharge Condition: Outpatient referral accepted (Patient will continue aftercare treatment for suboxone at [facility] located [phone] [place] [address] Zamorano once a month in the psychiatric clinic and is prescribed suboxon 8mg 2x a day) Hospital Course: patient participated in groups, had 1:1 session with his counselor, and was adherent to his treatment plan and medication regimen. - Medication Discharge Medications: Ambulatory Orders Alprazolam [Xanax] 2 mg PO BID 12/31/18 Buprenorphine/Naloxone [Suboxone 8 mg/2Mg Sl Film -] 1 each SL BID 01/04/19 Aspirin [ASA -] 81 mg PO DAILY #30 tab.chew 01/20/19 Gabapentin [Neurontin -] 100 mg PO TID #20 capsule 01/20/19 Hydrochlorothiazide [Hctz -] 25 mg PO DAILY #30 tablet 01/20/19 Tamsulosin HCl [Flomax -] 0.8 mg PO DAILY #14 cap.er.24h 01/20/19 - Medication-Assisted Treatment (MAT) Medication-Assisted Treatment (MAT): Yes Medication Prescribed: Buprenorphine MAT Follow-up Referral: Patient will continue aftercare treatment for suboxone at [facility]. located [phone] [facility]. Patient sees Dr Zamorano once a month in the psychiatric clinic and is prescribed suboxon 8mg 2x a day. Patient states that he does not need a prescription for suboxone, because he will see his provider tomorrow; he already has an appointment. - Medication - Discharge Instructions Diet, activity, other medical instructions: Diet:as tolerated Activity: as tolerated Other medical instructions: Please keep appointment with suboxone treatment program. Make an appointment with your PCP within 2 weeks of discharge. - Diagnosis (1) Opioid dependence with withdrawal Current Visit: No Status: Chronic - Follow-up Referral Minutes to complete discharge: 20 - AMA Did Patient Leave Against Medical Advice: No Additional Comments: Patient will continue aftercare treatment for suboxone at [facility]. located [phone] [facility]. Patient sees Dr Zamorano once a month in the psychiatric clinic and is prescribed suboxon 8mg 2x a day) - Medication
[2019-01-20] MEDS: ACETAMINOPHEN 325 MG TABLET (FP) PO PRN (17:08)
[2019-01-20] MEDS: THIAMINE HCL 100 MG TABLET (FP) PO SCH (21:13)
[2019-01-21] MEDS: GABAPENTIN 100 MG CAPSULE (FP) PO SCH (06:26)
[2019-01-21] MEDS: CYCLOBENZAPRINE HCL 10 MG TABLET (FP) PO SCH (06:26)
[2019-01-21] MEDS: NICOTINE POLACRILEX 4 MG GUM BUC PRN (06:27)
[2019-01-21 07:34] VITALS: TEMP 97.5
[2019-01-21] MEDS: NICOTINE 21 MG/24 HOURS TOPICAL PATCH TD SCH (09:08)
[2019-01-21] MEDS: TAMSULOSIN HCL 0.4 MG CAP PO SCH (09:08)
[2019-01-21] MEDS: ASPIRIN 81 MG CHEWABLE TABLETS PO SCH (09:08)
[2019-01-21] MEDS: BUPRENORPHINE/NALOXONE 4 MG/1 MG FILM PACKET SL SCH (09:08)
[2019-01-21] MEDS: cloNIDine HCL 0.1 MG TABLET PO SCH (09:09)
[2019-01-21] MEDS: HYDROCHLOROTHIAZIDE 25 MG TABLET (FP) PO SCH (09:09)
[2019-01-21] MEDS: PRENATAL VITAMINS W/ FOLIC ACID TABLET (FP) PO SCH (09:09)
[2019-01-21 10:23] VITALS: BP 116/79; PULSE 120
== END 2019-01-21 09:15 | disposition home or self-care (01) | DRG 772 ==
LOC: YASAS 10:46 → Y3W 10:48
PROVIDERS: ADMIT Neuromusculoskeletal Medicine & OMM; ATTEND Neuromusculoskeletal Medicine & OMM
PROC: HZ42ZZZ Group Counseling for Substance Abuse Treatment, Cognitive-Behavioral (ICD-10-PCS; principal; 2019-01-04)
DX: F11.23 Opioid dependence with withdrawal (principal); F17.210 Nicotine dependence, cigarettes, uncomplicated; F41.9 Anxiety disorder, unspecified; I10 Essential (primary) hypertension; N40.0 Benign prostatic hyperplasia without lower urinary tract symptoms; G62.9 Polyneuropathy, unspecified; Z88.0 Allergy status to penicillin; Z91.013 Allergy to seafood
CPT/HCPCS: J0735